=== PATIENT | male | born 1960 | race American Indian/Alaskan Native ===

== ENCOUNTER 2022-12-05 13:46 | Emergency (ER) | payer OTHER ==
[~2022-12-05] VITALS: Ht 180.3 cm; Wt 96.2 kg
[2022-12-05 14:56] LABS: BASOPHILS ABSOLUTE AUTO 0.09 K/mm3 (0.00-0.23); BASOPHILS PERCENT AUTO 1 % (0-2); EOSINOPHILS ABSOLUTE AUTO 0.18 K/mm3 (0.00-0.68); EOSINOPHILS PERCENT AUTO 2 % (0-6); Hematocrit 43.4 % (37.0-53.0); Hemoglobin 15.1 g/dL (13.5-17.5); IMMATURE GRAN ABSOLUTE AUTO 0.08 K/mm3 (0.00-0.10); IMMATURE GRAN PERCENT AUTO 1 % (0-1); LYMPHOCYTES ABSOLUTE AUTO 1.79 K/mm3 (0.84-5.20); LYMPHOCYTES PERCENT AUTO 15 % (21-46); MONOCYTES ABSOLUTE AUTO 1.11 K/mm3 (0.16-1.47); MONOCYTES PERCENT AUTO 9 % (4-13); Mean Corpuscular HGB 29.3 pg (26.0-34.0); Mean Corpuscular HGB Conc 34.8 g/dL (31.5-36.5); Mean Corpuscular Volume 84 fL (80-100); Mean Platelet Volume 10.9 fL (9.1-12.4); NEUTROPHILS ABSOLUTE AUTO 8.91 K/mm3 (1.96-9.15); NEUTROPHILS PERCENT AUTO 73 % (41-73); Platelet Count 241 K/mm3 (150-400); RDW Coefficient Variation 14.2 % (11.7-14.2); RDW Standard Deviation 43.7 fL (35.1-46.3); Red Blood Cell Count 5.16 M/mm3 (4.30-5.90); White Blood Cell Count 12.16 K/mm3 (4.00-11.30)
[2022-12-05 15:30] LABS: Albumin, Blood 3.3 g/dL (3.4-5.0); Albumin/Globulin Ratio 0.8 (0.8-1.8); Bilirubin, Total 0.8 mg/dL (0.1-1.0); Calcium, Blood 9.2 mg/dL (8.5-10.1); Creatinine, Blood 0.47 mg/dL (0.60-1.20); Globulin, Blood 3.9 g/dL (2.2-4.0); Potassium, Blood 3.3 mmol/L (3.5-5.5); Total Protein, Blood 7.2 g/dL (6.4-8.2)
== END 2022-12-05 16:45 | disposition home or self-care (01) ==
LOC: ER 13:46
PROVIDERS: Physician Assistant
DX: E11.52 Type 2 diabetes mellitus with diabetic peripheral angiopathy with gangrene (principal); I96 Gangrene, not elsewhere classified; F17.210 Nicotine dependence, cigarettes, uncomplicated; Z88.8 Allergy status to other drugs, medicaments and biological substances
CPT/HCPCS: 73620; 80053; 85025; 99283-25

== ENCOUNTER 2023-10-02 09:50 | Inpatient (IN) | payer SELFPAY ==
[~2023-10-02] VITALS: Ht 167.6 cm; Wt 87.4 kg
[2023-10-02] VITALS (15 sets, daily range): BP systolic 166–192; BP diastolic 75–99
[2023-10-02 10:43] LABS: BASOPHILS ABSOLUTE AUTO 0.24 K/mm3 (0.00-0.23); BASOPHILS PERCENT AUTO 1 % (0-2); EOSINOPHILS ABSOLUTE AUTO 0.16 K/mm3 (0.00-0.68); EOSINOPHILS PERCENT AUTO 1 % (0-6); Hematocrit 29.6 % (37.0-53.0); Hemoglobin 8.1 g/dL (13.5-17.5); IMMATURE GRAN ABSOLUTE AUTO 2.01 K/mm3 (0.00-0.10); IMMATURE GRAN PERCENT AUTO 6 % (0-1); LYMPHOCYTES ABSOLUTE AUTO 5.45 K/mm3 (0.84-5.20); LYMPHOCYTES PERCENT AUTO 16 % (21-46); MONOCYTES ABSOLUTE AUTO 2.02 K/mm3 (0.16-1.47); MONOCYTES PERCENT AUTO 6 % (4-13); Mean Corpuscular HGB 23.1 pg (26.0-34.0); Mean Corpuscular HGB Conc 27.4 g/dL (31.5-36.5); Mean Corpuscular Volume 85 fL (80-100); Mean Platelet Volume 11.6 fL (9.1-12.4); NEUTROPHILS PERCENT AUTO 71 % (41-73); Platelet Count 542 K/mm3 (150-400); RDW Coefficient Variation 17.6 % (11.7-14.2); RDW Standard Deviation 53.8 fL (35.1-46.3); White Blood Cell Count 34.48 K/mm3 (4.00-11.30)
[2023-10-02 11:10] LABS: Albumin, Blood 2.8 g/dL (3.4-5.0); Albumin/Globulin Ratio 0.9 (0.8-1.8); Bilirubin, Total 0.2 mg/dL (0.1-1.0); Bun/Creatinine Ratio 47.1 (12.0-20.0); Calcium, Blood 9.3 mg/dL (8.5-10.1); Creatinine, Blood 1.02 mg/dL (0.60-1.20); Globulin, Blood 3.1 g/dL (2.2-4.0); Potassium, Blood 4.5 mmol/L (3.5-5.5); Total Protein, Blood 5.9 g/dL (6.4-8.2)
[2023-10-02 12:34] LABS: PO2 Arterial 140 mmHg (80-100)
[2023-10-02 12:35] LABS: pH Blood Arterial 7.07 (7.35-7.45)
[2023-10-02 12:36] LABS: PCO2 Arterial 12.5 mmHg (35-45)
[2023-10-02] MEDS ORDERED: ELIQUIS5 M2 PO (16:08)
[2023-10-02] MEDS ORDERED: CYMBALTA60 M1 PO (16:09)
[2023-10-02] MEDS ORDERED: Hydroxyzine HCl25 MG PO (16:10)
[2023-10-02] MEDS ORDERED: Ativan1 MG PO (16:11)
[2023-10-02] MEDS ORDERED: Glucophage 500 mg PO (16:12)
[2023-10-02] MEDS ORDERED: METO100 PO (16:13)
[2023-10-02] MEDS ORDERED: MIRTAZAPINE7.5 M1 PO (16:14)
[2023-10-02] MEDS ORDERED: PERCOCET 10-321 EA10 PO (16:15)
[2023-10-02] MEDS ORDERED: PANT40 PO (16:16)
[2023-10-02] MEDS ORDERED: LYRICA150 M1 PO (16:17)
[2023-10-02] MEDS ORDERED: SEROQUEL50 MG PO (16:18)
[2023-10-02] MEDS ORDERED: SERT100 PO (16:19)
[2023-10-02] MEDS ORDERED: Januvia50 MG PO (16:20)
[2023-10-02 16:23] LABS: U Amphetamine Screen Not Detected; U Barbituate Screen Not Detected; U Benzodiazapine Screen DETECTED; U Buprenorphine Screen Not Detected; U Cannabinoids Screen DETECTED; U Cocaine Screen Not Detected; U Methadone Screen Not Detected; U Methamphetamine Screen Not Detected; U Opiates Screen Not Detected; U Oxycodone Screen DETECTED; U Phencyclidine Screen Not Detected
[2023-10-02 16:44] LABS: Hematocrit 19.5 % (37.0-53.0); Hemoglobin 6.1 g/dL (13.5-17.5)
[2023-10-02 17:02] LABS: International Normalized Ratio 1.21; Prothrombin Time Results 12.6 Sec (9.7-11.5)
[2023-10-02 17:19] LABS: Magnesium, Blood 2.3 mg/dL (1.6-2.4)
[2023-10-02 18:22] LABS: Adenovirus Not Detected (NOT DETECT); Bordetella pertussis Not Detected (NOT DETECT); Chlamydophila pneumoniae Not Detected (NOT DETECT); Coronavirus 229E Not Detected (NOT DETECT); Coronavirus HKU1 Not Detected (NOT DETECT); Coronavirus NL63 Not Detected (NOT DETECT); Coronavirus OC43 Not Detected (NOT DETECT); Human Metapneumovirus Not Detected (NOT DETECT); Human Rhinovirus/Enterovirus Not Detected (NOT DETECT); Influenza A/2009-H1 Not Detected (NOT DETECT); Influenza A/H1 Not Detected (NOT DETECT); Influenza A/H3 Not Detected (NOT DETECT); Influenza B Not Detected (NOT DETECT); Mycoplasma pneumoniae Not Detected (NOT DETECT); Parainfluenza Virus 1 Not Detected (NOT DETECT); Parainfluenza Virus 2 Not Detected (NOT DETECT); Parainfluenza Virus 3 Not Detected (NOT DETECT); Parainfluenza Virus 4 Not Detected (NOT DETECT); Respiratory Syncytial Virus Not Detected (NOT DETECT); SARS-Cov-2 (COVID-19), BioFire Not Detected (NOT DETECT)
[2023-10-02 18:23] LABS: Source, Urine Clean Catch
--- NOTE | 2023-10-02 18:38 | NUR ---
PATIENT ARRIVAL FROM ED PT ARRIVED FROM ED AT 1725. PT A/O X2. PT ABLE TO STATE AND THAT HE WAS IN THE HOSPITAL. PT CONTINUOUSLY PULLING AT GOWN, BLANKETS AND CORDS. PT NEEDING CONSISTENT REDIRECTION. PT ABLE TO FOLLOW SOME COMMANDS, OCCASIONALLY ASSISTING WITH TURNING IN BED. PT ON RA, O2 SATS > 95%. RESPIRATION RATE 30s. LUNG SHAW CLEAR T/O. CARDIAC MONITORING REFLECTS SINUS TACH, HR 130s. SBP 160s AT THIS TIME. VERSED, NS, AND INSULIN INFUSING UPON ARRIVAL TO UNIT, SEE FLOWSHEET. BLOOD TRANSFUSING @ 200 ML/HR, DOCUMENTATION FOR BLOOD PRODUCT CONTINUED ON ED PAPER RECORD. PT TO RECIEVE 1 MORE UNIT OF PRBCs. PT'S AT BEDSIDE. TEMP MORENO PATENT AND DRAINING TO GRAVITY. PT HAS VARIOUS WOUNDS ON BODY, SEE PICTURES DOCUMENTED IN CHART. TOES AMPUTATED ON PT'S LEFT FOOT. [address], PATENT WITH POSITIVE BLOOD DRAWBACK. PT IN BILATERAL SOFT WRIST RESTRAINTS.
[2023-10-02 18:40] LABS: Albumin, Blood 2.3 g/dL (3.4-5.0); Anion Gap 16 mmol/L (6-16); Blood Urea Nitrogen 51 mg/dL (8-24); Bun/Creatinine Ratio 49.5 (12.0-20.0); CO2, Blood 16 mmol/L (21-32); Chloride, Blood 113 mmol/L (98-108); Creatinine, Blood 1.03 mg/dL (0.60-1.20); Glomerular Filtration Rate 82 (60-); Glucose, Blood 361 mg/dL (70-99); Phosphorus, Blood 3.6 mg/dL (2.5-4.9); Potassium, Blood 4.4 mmol/L (3.5-5.5); Sodium, Blood 145 mmol/L (136-145)
[2023-10-02 18:40] LABS: Bilirubin, Urine Neg (Neg); Blood, Urine 5+ (Neg); Glucose Qualitative, Urine 4+ (Neg); Ketones, Urine 2+ (Neg); Leukocyte Esterase, Urine Neg (Neg); Nitrite, Urine Neg (Neg); Protein, Urine 2+ (Neg); Urobilinogen, Urine NORM (Normal)
[2023-10-02 18:41] LABS: Appearance, Urine Clear (Clear); Color, Urine Yellow (P-Yellow)
[2023-10-02 18:42] LABS: Bacteria Not Seen /hpf; Granular Casts 0-2 /lpf (0); Red Blood Cells, Urine 0-2 /hpf (0-2); Squamous Epithelial Cells Not Seen /hpf (Few); White Blood Cells, Urine Not Seen /hpf (0-5)
[2023-10-02 20:06] LABS: Hematocrit 25.6 % (37.0-53.0); Hemoglobin 8.5 g/dL (13.5-17.5)
[2023-10-02 20:25] LABS: Albumin, Blood 2.7 g/dL (3.4-5.0); Anion Gap 10 mmol/L (6-16); Blood Urea Nitrogen 48 mg/dL (8-24); CO2, Blood 19 mmol/L (21-32); Calcium, Blood 7.3 mg/dL (8.5-10.1); Chloride, Blood 114 mmol/L (98-108); Creatinine, Blood 0.87 mg/dL (0.60-1.20); Glomerular Filtration Rate 98 (60-); Glucose, Blood 250 mg/dL (70-99); Magnesium, Blood 2.2 mg/dL (1.6-2.4); Phosphorus, Blood 2.6 mg/dL (2.5-4.9); Potassium, Blood 4.5 mmol/L (3.5-5.5); Sodium, Blood 143 mmol/L (136-145)
--- NOTE | 2023-10-02 21:55 | NUR ---
ASSUMPTION OF CARE: RECEIVED REPORT FROM LOUIE RODRIGUEZ AND ANTHONY RN. PT ALERT AND ORIENTED TO PERSON AND PLACE. PT HAS FREQUENT EPISODES OF CONFUSION, BUT IS REDIRECTABLE. PT FREQUENTLY REPEATING HIMSELF. PT ON RA WITH SPO2 >95%. PT AGITATED AND TRYING TO CRAWL OUT OF BED. CALL PLACED TO HOSPITALIST, ORDERS GIVEN. PRECEDEX STARTED AT 0.4 MCG/KG/HR, TITRATED NEEDED. SEE FLOWSHEET. PT ENDORSES PAIN IN BACK, MEDICATED PER MAR WITH MINIMAL RELIEF. INSULIN DRIP AT 2 UNITS/HR. D5 1/2 NS AT 125 ML/HR. MORENO IN PLACE, DRAINING TO GRAVITY. LARGE BLACK STOOL THIS SHIFT. COOKIE BREAKER IN PLACE, SIT, HR 130'S. SBP 160'S-180'S. POWERGLIDE TO MICHAEL, SALINE LOCKED. PIV'S TO LEFT ARM, INTACT AND INFUSING. BILATERAL SOFT WRIST RESTRAINTS IN PLACE. BED LOW AND LOCKED.
[2023-10-02 22:01] LABS: Adenovirus F 40/41 Not Detected (NOT DETECT); Astrovirus Not Detected (NOT DETECT); Campylobacter Sp Not Detected (NOT DETECT); Cryptosporidium Not Detected (NOT DETECT); Cyclospora Cayetanensis Not Detected (NOT DETECT); E. Coli O157 Not Detected (NOT DETECT); Entamoeba Histolytica Not Detected (NOT DETECT); Enteroaggregative E. coli-EAEC Not Detected (NOT DETECT); Enteropathogenic E. coli-EPEC Not Detected (NOT DETECT); Enterotoxigenic E. coli-ETEC Not Detected (NOT DETECT); Giardia Lamblia Not Detected (NOT DETECT); Norovirus GI/GII Not Detected (NOT DETECT); Plesiomonas Shigelloides Not Detected (NOT DETECT); Rotavirus A Not Detected (NOT DETECT); Salmonella Sp Not Detected (NOT DETECT); Sapovirus Not Detected (NOT DETECT); Shiga Toxin-prod E. coli-STEC Not Detected (NOT DETECT); Shigella/Enteroin E. coli-EIEC Not Detected (NOT DETECT); Vibrio Cholerae Not Detected (NOT DETECT); Vibrio Sp Not Detected (NOT DETECT); Yersinia Enterocolitica Not Detected (NOT DETECT)
[2023-10-02 22:41] LABS: Hematocrit 24.1 % (37.0-53.0); Hemoglobin 7.9 g/dL (13.5-17.5)
[2023-10-03] VITALS (42 sets, daily range): BP systolic 126–181; BP diastolic 47–117
[2023-10-03 00:49] LABS: Albumin, Blood 2.6 g/dL (3.4-5.0); Anion Gap 7 mmol/L (6-16); Blood Urea Nitrogen 48 mg/dL (8-24); Bun/Creatinine Ratio 57.6 (12.0-20.0); CO2, Blood 21 mmol/L (21-32); Calcium, Blood 7.2 mg/dL (8.5-10.1); Chloride, Blood 116 mmol/L (98-108); Creatinine, Blood 0.83 mg/dL (0.60-1.20); Glomerular Filtration Rate 99 (60-); Glucose, Blood 242 mg/dL (70-99); Phosphorus, Blood 2.2 mg/dL (2.5-4.9); Potassium, Blood 4.1 mmol/L (3.5-5.5); Sodium, Blood 144 mmol/L (136-145)
[2023-10-03 04:37] LABS: BASOPHILS ABSOLUTE AUTO 0.04 K/mm3 (0.00-0.23); BASOPHILS PERCENT AUTO 0 % (0-2); EOSINOPHILS ABSOLUTE AUTO 0.05 K/mm3 (0.00-0.68); EOSINOPHILS PERCENT AUTO 0 % (0-6); Hematocrit 22.2 % (37.0-53.0); Hemoglobin 7.4 g/dL (13.5-17.5); IMMATURE GRAN PERCENT AUTO 2 % (0-1); LYMPHOCYTES PERCENT AUTO 4 % (21-46); MONOCYTES ABSOLUTE AUTO 0.87 K/mm3 (0.16-1.47); MONOCYTES PERCENT AUTO 5 % (4-13); Mean Corpuscular HGB 24.8 pg (26.0-34.0); Mean Corpuscular HGB Conc 33.3 g/dL (31.5-36.5); Mean Platelet Volume 10.9 fL (9.1-12.4); NEUTROPHILS ABSOLUTE AUTO 17.04 K/mm3 (1.96-9.15); NEUTROPHILS PERCENT AUTO 90 % (41-73); Platelet Count 174 K/mm3 (150-400); RDW Coefficient Variation 17.5 % (11.7-14.2); RDW Standard Deviation 47.2 fL (35.1-46.3); Red Blood Cell Count 2.98 M/mm3 (4.30-5.90)
[2023-10-03 04:39] LABS: Mean Corpuscular Volume 75 fL (80-100)
[2023-10-03 04:54] LABS: Albumin, Blood 2.6 g/dL (3.4-5.0); Anion Gap 8 mmol/L (6-16); Blood Urea Nitrogen 43 mg/dL (8-24); CO2, Blood 20 mmol/L (21-32); Calcium, Blood 7.5 mg/dL (8.5-10.1); Chloride, Blood 118 mmol/L (98-108); Glomerular Filtration Rate 100 (60-); Glucose, Blood 184 mg/dL (70-99); Magnesium, Blood 2.1 mg/dL (1.6-2.4); Phosphorus, Blood 2.1 mg/dL (2.5-4.9); Potassium, Blood 3.7 mmol/L (3.5-5.5); Sodium, Blood 146 mmol/L (136-145)
--- NOTE | 2023-10-03 06:26 | NUR ---
SHIFT SUMMARY: PT ALERT AND ORIENTED TO PERSON, PLACE AND SITUATION. ABLE TO ANSWER SIMPLE QUESTIONS AND FOLLOW COMMANDS. PT CONFUSED AT TIMES, VERY RESTLESS AND AGITATED T/O THE SHIFT. FREQUENTLY PULLING AT LINES AND HOLLERING OUT. PT ON PRECEDEX AT 1.4 MCG/KG/HR. INSULIN AT 4 UNITS/HR. D5 1/2 AT 125 ML/HR. PT FREQUENTLY C/O PAIN IN BACK AND LEGS, MEDICATED PER MAR WITH MINIMAL RELIEF. LIDOCAINE PATCH PLACED ON LOWER BACK. PT REMAINS ON RA T/O THE SHIFT, NO C/O SOB. SPO2 >95%. SPIKE DRIVER IN PLACE, SIT HR 100'S. SBP 160'S-170'S. PT ABLE TO SHIFT AROUND IN BED WITH MINIMAL ASSISTANCE. MORENO DRAINING TO GRAVITY. ONE LIQUID BLACK BM THIS SHIFT. POWERGLIDE TO MICHAEL, INFUSING. PIV'S INTACT AND INFUSING. SOFT WRIST RESTRAINTS IN PLACE FOR PROTECTION OF LINES. CALLED IN THE NIGHT FOR AN UPDATE. BED LOW AND LOCKED.
--- NOTE | 2023-10-03 07:55 | NUR ---
AM NOTE... ASSUMED CARE OF PT AT 0700. PT IS A&Ox4 WITH SOME CONFUSION AT TIMES BUT IS RE-ORIENTED EASILY. PT IS ON THE INSULIN DRIP RUNNING AT 4U/HR, PRECEDEX DRIP RUNNING AT 1.4MCG/KG/HR, THIS WAS STOPPED AT THE TIME OF THIS ASSESSMENT. HE IS IN SINUS TACH IN THE LOW 100'S BP IS HYPERTENSIVE WITH SBPs 140'S-180'S. THE PT'S PULSES TO HIS BLE ARE ABSENT, THIS RN ASSESSED HIS BLE WITH DOPPLER AND WAS NOT ABLE TO IDENTIFY THE PRESENCE OF DORSAL PEDAL OR P. TIBIAL PULSES ON EITHER BLE. HIS BLE FROM THE KNEES DOWN ARE PALE, DRY AND COOL TO THE TOUCH. THERE IS A DARK BLACK/RED BLISTER LOOKING SPOT TO THE PT'S R GREAT TOE. HE IS ON RA WITH O2 SATS>95% L/S CLEAR T/O DIM IN THE BASES RR IN THE 20'S. BT PRESENT AND HYPERACTIVE, ABD IS SOFT AND NONTENDER TO PALPATION. PER NOC SHIFT RN REPORT THE PT HAD A LARGE LOOSE BLACK TARRY STOOL AT THE START OF THE NOC SHIFT BUT NOTHING SINCE. TEMP MORENO IN PLACE AND DRAINING CLEAR YELLOW URINE TO GRAVITY. CURRENT TEMP IS 99.7. CALL LIGHT IN REACH WILL CONTINUE TO MONITOR.
[2023-10-03 11:03] LABS: Hematocrit 22.4 % (37.0-53.0); Hemoglobin 7.5 g/dL (13.5-17.5)
[2023-10-03 11:55] LABS: Stool Occult Bld Immuno 1 Positive (NEGATIVE)
--- NOTE | 2023-10-03 15:28 | NUR ---
PT TRANSFER OUT.... PT LEFT WITH MEDICAL TRANSPORT AT 1520, REPORT GIVEN TO EMS STAFF AT THE TIME OF TRANSFER. ALL OF THE PT'S BELONGINGS PACKED AND SENT WITH THE PT'S FERNIE. REPORT GIVEN TO ABLE RN AT [facility] [place]. PT'S VS STABLE AT THE TIME OF TRANSFER.
[2023-10-04 22:07] LABS: HEMOGLOBIN A1C 7.2 % (4.8-5.6)
== END 2023-10-03 15:42 | disposition short-term general hospital (02) | DRG 637 ==
LOC: ER 09:50 → ICUE 15:50
PROVIDERS: Emergency Medicine; Nurse Practitioner Acute Care; ADMIT Internal Medicine
PROC: 30233N1 Transfusion of Nonautologous Red Blood Cells into Peripheral Vein, Percutaneous Approach (ICD-10-PCS; principal; 2023-10-02)
DX: E11.10 Type 2 diabetes mellitus with ketoacidosis without coma (principal); G93.41 Metabolic encephalopathy; J18.9 Pneumonia, unspecified organism; D62 Acute posthemorrhagic anemia; L97.929 Non-pressure chronic ulcer of unspecified part of left lower leg with unspecified severity; K92.2 Gastrointestinal hemorrhage, unspecified; E11.622 Type 2 diabetes mellitus with other skin ulcer; E86.0 Dehydration; E83.39 Other disorders of phosphorus metabolism; D75.839 Thrombocytosis, unspecified; I50.9 Heart failure, unspecified; I25.10 Atherosclerotic heart disease of native coronary artery without angina pectoris; E11.51 Type 2 diabetes mellitus with diabetic peripheral angiopathy without gangrene; M54.9 Dorsalgia, unspecified; G89.29 Other chronic pain; F29 Unspecified psychosis not due to a substance or known physiological condition; E11.42 Type 2 diabetes mellitus with diabetic polyneuropathy; F41.9 Anxiety disorder, unspecified; F32.A Depression, unspecified; F32.9 Major depressive disorder, single episode, unspecified; F17.210 Nicotine dependence, cigarettes, uncomplicated; Z86.711 Personal history of pulmonary embolism; Z86.718 Personal history of other venous thrombosis and embolism; Z79.01 Long term (current) use of anticoagulants; I25.2 Old myocardial infarction; Z95.5 Presence of coronary angioplasty implant and graft; Z95.1 Presence of aortocoronary bypass graft; Z99.81 Dependence on supplemental oxygen; Z89.422 Acquired absence of other left toe(s); Z89.412 Acquired absence of left great toe; Z88.8 Allergy status to other drugs, medicaments and biological substances
CPT/HCPCS: 0202U; 36415; 36430; 36600; 51702; 71045; 80053; 80069; 81001; 82274; 82330; 82803; 82947; 83735; 83880; 84145; 84484; 85014; 85018; 85025; 85379; 85610; 85730; 86850; 86900; 86901; 86920; 87086; 87507; 93005; 93010; 99285-25; A9270; C1751; C9113; J0360; J0456; J0696; J1170; J1200; J1630; J1815; J1885; J2060; J2250; J3010; J7030; J7042; J7050; J7060; P9016

== ENCOUNTER 2023-12-03 07:30 | Emergency (ER) | payer OTHER ==
[~2023-12-03] VITALS: Ht 180.3 cm; Wt 83.9 kg
[~2023-12-03 07:30] MED LIST: Ativan1 MG PO; CYMBALTA60 M1 PO; ELIQUIS5 M2 PO; Glucophage 500 mg PO; Hydroxyzine HCl25 MG PO; Januvia50 MG PO; LYRICA150 M1 PO; METO100 PO; MIRTAZAPINE7.5 M1 PO; PANT40 PO; PERCOCET 10-321 EA10 PO; SEROQUEL50 MG PO; SERT100 PO
[2023-12-03 08:04] LABS: BASOPHILS ABSOLUTE AUTO 0.06 K/mm3 (0.00-0.23); BASOPHILS PERCENT AUTO 1 % (0-2); EOSINOPHILS ABSOLUTE AUTO 0.12 K/mm3 (0.00-0.68); EOSINOPHILS PERCENT AUTO 1 % (0-6); Hematocrit 39.5 % (37.0-53.0); Hemoglobin 12.2 g/dL (13.5-17.5); IMMATURE GRAN ABSOLUTE AUTO 0.07 K/mm3 (0.00-0.10); IMMATURE GRAN PERCENT AUTO 1 % (0-1); LYMPHOCYTES ABSOLUTE AUTO 1.16 K/mm3 (0.84-5.20); LYMPHOCYTES PERCENT AUTO 11 % (21-46); MONOCYTES ABSOLUTE AUTO 0.47 K/mm3 (0.16-1.47); MONOCYTES PERCENT AUTO 4 % (4-13); Mean Corpuscular HGB 23.5 pg (26.0-34.0); Mean Corpuscular HGB Conc 30.9 g/dL (31.5-36.5); Mean Corpuscular Volume 76 fL (80-100); Mean Platelet Volume 9.7 fL (9.1-12.4); NEUTROPHILS ABSOLUTE AUTO 8.79 K/mm3 (1.96-9.15); NEUTROPHILS PERCENT AUTO 82 % (41-73); Platelet Count 347 K/mm3 (150-400); RDW Coefficient Variation 16.5 % (11.7-14.2); RDW Standard Deviation 45.6 fL (35.1-46.3); White Blood Cell Count 10.67 K/mm3 (4.00-11.30)
[2023-12-03 08:07] LABS: Base Excess Venous 1.6 mmol/L; Bicarbonate Venous 25.5 mmol/L (24.0-30.0); PCO2 Venous 39.1 mmHg (38-42); pH Blood Venous 7.43 (7.34-7.37)
[2023-12-03] MEDS ORDERED: Morphine Sulfate 4 MG/1 ML Injection IV ONE (08:15)
[2023-12-03 08:27] LABS: Albumin, Blood 3.3 g/dL (3.4-5.0); Albumin/Globulin Ratio 0.7 (0.8-1.8); Bilirubin, Total 0.3 mg/dL (0.1-1.0); Bun/Creatinine Ratio 22.9 (12.0-20.0); Calcium, Blood 9.7 mg/dL (8.5-10.1); Creatinine, Blood 0.48 mg/dL (0.60-1.20); Globulin, Blood 4.6 g/dL (2.2-4.0); Potassium, Blood 4.2 mmol/L (3.5-5.5); Total Protein, Blood 7.9 g/dL (6.4-8.2)
[2023-12-03 10:26] LABS: Source, Urine Clean Catch
[2023-12-03 10:37] LABS: Appearance, Urine Clear (Clear); Bilirubin, Urine Neg (Neg); Blood, Urine Neg (Neg); Color, Urine Yellow (P-Yellow); Glucose Qualitative, Urine Neg (Neg); Ketones, Urine Neg (Neg); Leukocyte Esterase, Urine Neg (Neg); Nitrite, Urine Neg (Neg); Protein, Urine 1+ (Neg); Urobilinogen, Urine NORM (Normal)
[2023-12-03 11:02] VITALS: BP 132/70
== END 2023-12-03 13:24 | disposition home or self-care (01) ==
LOC: ER 07:30
PROVIDERS: Emergency Medicine
DX: R53.81 Other malaise (principal); R68.83 Chills (without fever); Z89.512 Acquired absence of left leg below knee; Z71.89 Other specified counseling; E11.40 Type 2 diabetes mellitus with diabetic neuropathy, unspecified; E11.65 Type 2 diabetes mellitus with hyperglycemia; I11.0 Hypertensive heart disease with heart failure; I50.9 Heart failure, unspecified; Z86.711 Personal history of pulmonary embolism; Z86.718 Personal history of other venous thrombosis and embolism; Z87.19 Personal history of other diseases of the digestive system; F17.210 Nicotine dependence, cigarettes, uncomplicated; Z79.01 Long term (current) use of anticoagulants; Z79.84 Long term (current) use of oral hypoglycemic drugs; Z88.8 Allergy status to other drugs, medicaments and biological substances
CPT/HCPCS: 71045; 80053; 82803; 85025; 86850; 86900; 86901; 96374; 99285-25; J2270

== ENCOUNTER 2024-01-19 20:12 | Inpatient (IN) | payer MEDICARE, OTHER ==
[~2024-01-19] VITALS: Ht 180.3 cm; Wt 86.5 kg
[~2024-01-19 20:12] MED LIST changes: +CEPH500 PO; +DOXY100 PO
[2024-01-19 20:39] LABS: BASOPHILS ABSOLUTE AUTO 0.08 K/mm3 (0.00-0.23); BASOPHILS PERCENT AUTO 1 % (0-2); EOSINOPHILS ABSOLUTE AUTO 0.06 K/mm3 (0.00-0.68); EOSINOPHILS PERCENT AUTO 1 % (0-6); Hematocrit 42.6 % (37.0-53.0); Hemoglobin 13.4 g/dL (13.5-17.5); IMMATURE GRAN ABSOLUTE AUTO 0.07 K/mm3 (0.00-0.10); IMMATURE GRAN PERCENT AUTO 1 % (0-1); LYMPHOCYTES ABSOLUTE AUTO 1.12 K/mm3 (0.84-5.20); LYMPHOCYTES PERCENT AUTO 9 % (21-46); MONOCYTES ABSOLUTE AUTO 0.52 K/mm3 (0.16-1.47); MONOCYTES PERCENT AUTO 4 % (4-13); Mean Corpuscular HGB 22.6 pg (26.0-34.0); Mean Corpuscular HGB Conc 31.5 g/dL (31.5-36.5); Mean Corpuscular Volume 72 fL (80-100); Mean Platelet Volume 10.4 fL (9.1-12.4); NEUTROPHILS ABSOLUTE AUTO 10.29 K/mm3 (1.96-9.15); NEUTROPHILS PERCENT AUTO 85 % (41-73); Platelet Count 297 K/mm3 (150-400); RDW Coefficient Variation 16.6 % (11.7-14.2); RDW Standard Deviation 41.7 fL (35.1-46.3); Red Blood Cell Count 5.94 M/mm3 (4.30-5.90); White Blood Cell Count 12.14 K/mm3 (4.00-11.30)
[2024-01-19 21:08] LABS: Albumin, Blood 3.8 g/dL (3.4-5.0); Albumin/Globulin Ratio 0.9 (0.8-1.8); Bilirubin, Total 0.3 mg/dL (0.1-1.0); Bun/Creatinine Ratio 18.5 (12.0-20.0); Creatinine, Blood 0.54 mg/dL (0.60-1.20); Globulin, Blood 4.2 g/dL (2.2-4.0); Potassium, Blood 4.1 mmol/L (3.5-5.5)
[2024-01-19] MEDS ORDERED: LORazepam 2 MG/ML 1ML Injection IV PRN (21:20)
[2024-01-19] MEDS ORDERED: HYDROmorphone HCl/Pf 1MG SYR IV ONE (21:20)
[2024-01-20] MEDS ORDERED: Apixaban 5 MG Tab PO ONE (00:25)
[2024-01-20] MEDS ORDERED: Famotidine 20 MG Tab PO ONE (00:25)
[2024-01-20] MEDS ORDERED: Mag Hydrox/AL Hydrox/Simeth 30 ML UDC PO ONE (00:25)
[2024-01-20] MEDS ORDERED: Lidocaine 2% Viscous Soln 15 ML UDC PO ONE (00:25)
[2024-01-20 01:57] LABS: Adenovirus Not Detected (NOT DETECT); Bordetella pertussis Not Detected (NOT DETECT); Chlamydophila pneumoniae Not Detected (NOT DETECT); Coronavirus 229E Not Detected (NOT DETECT); Coronavirus HKU1 Not Detected (NOT DETECT); Coronavirus NL63 Not Detected (NOT DETECT); Coronavirus OC43 Not Detected (NOT DETECT); Human Metapneumovirus Not Detected (NOT DETECT); Human Rhinovirus/Enterovirus Not Detected (NOT DETECT); Influenza A/2009-H1 Not Detected (NOT DETECT); Influenza A/H1 Not Detected (NOT DETECT); Influenza A/H3 Not Detected (NOT DETECT); Influenza B Not Detected (NOT DETECT); Mycoplasma pneumoniae Not Detected (NOT DETECT); Parainfluenza Virus 1 Not Detected (NOT DETECT); Parainfluenza Virus 2 Not Detected (NOT DETECT); Parainfluenza Virus 3 Not Detected (NOT DETECT); Parainfluenza Virus 4 Not Detected (NOT DETECT); Respiratory Syncytial Virus Not Detected (NOT DETECT); SARS-Cov-2 (COVID-19), BioFire Not Detected (NOT DETECT)
[2024-01-20] MEDS ORDERED: Cefepime HCl 1,000 MG in NS 100 ML IV ONE (02:20)
[2024-01-20] MEDS ORDERED: Vancomycin HCL 1,500 MG in NS 265 ML IV ONE (02:20)
[2024-01-20] MEDS ORDERED: NS 1,000 ML IV SCH ×3 (02:20→09:00)
[2024-01-20] MEDS ORDERED: FentaNYL Citrate 50 MCG/ML 2 ML Injection IV PRN (02:40)
[2024-01-20] MEDS ORDERED: Ondansetron HCl 2 MG / ML 2ML Vial IV PRN (02:40)
[2024-01-20] MEDS ORDERED: Ampicillin Sod/Sulbactam Sod 3 GM in NS 100 ML IV SCH (03:00)
[2024-01-20] MEDS ORDERED: MIRT30 PO (03:11)
[2024-01-20] MEDS ORDERED: QUET25 PO (03:12)
[2024-01-20] MEDS ORDERED: Ventolin/Prove6.7 GM INH (03:25)
[2024-01-20] MEDS ORDERED: Lyrica300 MG PO (03:25)
[2024-01-20] MEDS ORDERED: VARENICLINE TART1 M2 PO (03:26)
[2024-01-20 04:17] VITALS: BP 182/74
--- NOTE | 2024-01-20 05:24 | NUR ---
PT ARRIVED TO 0408 TO THE UNIT. PT TRANSFERED VIA BLACK SLIDING SHEET. PT A&O x2, BP ELEVATED, AFEBRILE. PT ON RA, RESP RATE EVEN AND UNLABORED. AT THE BEDSIDE ASSISTING WITH ANSWERING ASSESSMENT QUESTIONS. PT SHAKING, DIAPHORETIC, ASKING FOR WARM BLANKETS. PT ADMITTED FOR NAUSEA, CHILLS, ABD PAIN TO THE CENTER OF ABDOMIN, ADMIT DIAGNOSIS SIRS. PT HAS A HX OF DM2, CHF, GIB, PE, DVT, L BKA, CABG, CAD, DE AND CHRONIC BACK PAIN. SKIN ASSESSMENT COMPLETED, PICTURES TO R GREAT TOE AND INCISION SITE TO L INNER LEG TAKEN AND IN HIS CHART. PT RECEIVING IV ABX. CALL LIGHT WITHIN REACH, WCTM.
[2024-01-20 05:40] LABS: BASOPHILS ABSOLUTE AUTO 0.06 K/mm3 (0.00-0.23); BASOPHILS PERCENT AUTO 1 % (0-2); EOSINOPHILS PERCENT AUTO 0 % (0-6); Hematocrit 44.4 % (37.0-53.0); Hemoglobin 13.8 g/dL (13.5-17.5); IMMATURE GRAN ABSOLUTE AUTO 0.07 K/mm3 (0.00-0.10); IMMATURE GRAN PERCENT AUTO 1 % (0-1); LYMPHOCYTES ABSOLUTE AUTO 1.22 K/mm3 (0.84-5.20); LYMPHOCYTES PERCENT AUTO 10 % (21-46); MONOCYTES ABSOLUTE AUTO 0.42 K/mm3 (0.16-1.47); MONOCYTES PERCENT AUTO 4 % (4-13); Mean Corpuscular HGB 22.3 pg (26.0-34.0); Mean Corpuscular HGB Conc 31.1 g/dL (31.5-36.5); Mean Corpuscular Volume 72 fL (80-100); Mean Platelet Volume 10.4 fL (9.1-12.4); NEUTROPHILS ABSOLUTE AUTO 10.33 K/mm3 (1.96-9.15); NEUTROPHILS PERCENT AUTO 85 % (41-73); Platelet Count 310 K/mm3 (150-400); RDW Standard Deviation 41.5 fL (35.1-46.3); Red Blood Cell Count 6.18 M/mm3 (4.30-5.90)
[2024-01-20 05:47] LABS: International Normalized Ratio 0.98; Prothrombin Time Results 10.3 Sec (9.7-11.5)
[2024-01-20 06:00] LABS: Albumin, Blood 3.8 g/dL (3.4-5.0); Albumin/Globulin Ratio 0.9 (0.8-1.8); Bilirubin, Total 0.2 mg/dL (0.1-1.0); Bun/Creatinine Ratio 25.8 (12.0-20.0); Creatinine, Blood 0.47 mg/dL (0.60-1.20); Globulin, Blood 4.3 g/dL (2.2-4.0); Potassium, Blood 4.1 mmol/L (3.5-5.5); Total Protein, Blood 8.1 g/dL (6.4-8.2)
[2024-01-20] MEDS ORDERED: Albuterol HFA200 ACT/6.7 GM INH INH PRN (06:45)
[2024-01-20 07:21] VITALS: BP 149/81
[2024-01-20 08:42] LABS: Source, Urine Clean Catch
[2024-01-20 08:55] LABS: Appearance, Urine Hazy (Clear); Bilirubin, Urine Neg (Neg); Blood, Urine Neg (Neg); Color, Urine Yellow (P-Yellow); Glucose Qualitative, Urine Neg (Neg); Ketones, Urine Neg (Neg); Leukocyte Esterase, Urine Neg (Neg); Nitrite, Urine Neg (Neg); Protein, Urine 1+ (Neg); Urobilinogen, Urine NORM (Normal)
[2024-01-20] MEDS ORDERED: QUEtiapine Fumarate 25 MG Tab PO SCH (09:00)
[2024-01-20] MEDS ORDERED: OxyCODONE 10/Acetamin 325 TABLET PO PRN (09:00)
[2024-01-20] MEDS ORDERED: DULoxetine HCL 60 MG Capsule DR PO SCH (09:00)
[2024-01-20] MEDS ORDERED: Varenicline Tartrate 1 MG Tablet PO SCH (09:00)
[2024-01-20] MEDS ORDERED: Enoxaparin 40 MG/0.4 ML SYR SC SCH (09:00)
[2024-01-20] MEDS ORDERED: Pregabalin 75 MG Cap PO SCH (09:00)
[2024-01-20 09:08] LABS: Amorphous Heavy (0-Heavy); Bacteria Not Seen /hpf; Red Blood Cells, Urine Not Seen /hpf (0-2); Squamous Epithelial Cells Not Seen /hpf (Few); White Blood Cells, Urine Not Seen /hpf (0-5)
[2024-01-20 09:09] LABS: U Amphetamine Screen Not Detected; U Barbituate Screen Not Detected; U Benzodiazapine Screen DETECTED; U Buprenorphine Screen Not Detected; U Cannabinoids Screen DETECTED; U Cocaine Screen Not Detected; U Methadone Screen Not Detected; U Methamphetamine Screen Not Detected; U Opiates Screen DETECTED; U Oxycodone Screen DETECTED; U Phencyclidine Screen Not Detected
[2024-01-20] MEDS ORDERED: Nicotine 14 MG PATCH TOP SCH (09:35)
[2024-01-20 11:40] LABS: Hematocrit 39.2 % (37.0-53.0); Hemoglobin 12.5 g/dL (13.5-17.5)
[2024-01-20] MEDS ORDERED: Heparin Sodium,Porcine/0.5 NS 500 ML IV SCH (12:00)
[2024-01-20 16:27] VITALS: BP 152/71
[2024-01-20] MEDS ORDERED: Insulin Human Lispro 100 Units/ML 3ML Syringe SC SCH (16:30)
--- NOTE | 2024-01-20 16:43 | NUR ---
SHIFT SUMMARY PT AOX3, MORE ORIENTED THIS AFTERNOON. MEDICATED FOR PAIN PER THE EMAR. HEPARIN DRIP RUNNING AND IV PATENT. PT WC AT BASELINE, USES THE URINAL INDEPENDENTLY. CALLS AND MAKES HIS NEEDS KNOWN. AT THE BS MOST OF THE SHIFT. CALL LIGHT WITHIN REACH, BED IN THE LOWEST POSITION. WILL REPORT TO ONCOMING NURSE.
[2024-01-20 19:12] LABS: Hematocrit 39.1 % (37.0-53.0); Hemoglobin 12.2 g/dL (13.5-17.5)
[2024-01-20] MEDS ORDERED: Heparin Sodium 5000 Units/ML 1ML MDV IV ONE (20:10)
[2024-01-20 20:11] VITALS: BP 161/74
[2024-01-20] MEDS ORDERED: Mirtazapine 30 MG Tab PO SCH (21:00)
[2024-01-21] MEDS ORDERED: LORazepam 1 MG Tab PO ONE (01:35)
--- NOTE | 2024-01-21 02:00 | NUR ---
ADMIT NOTE PATIENT ARRIVED TO FLOOR VIA GURNEY. ORIENTED TO UNIT. IV ANTIB RX INFUSING. PERSONAL CLOTHES ON PATIENT AT THIS TIME, HE DECLINES TO CHANGE. TELEMETRY ORDERED. CALL BUTTON WITHIN REACH.
[2024-01-21 02:55] VITALS: BP 128/72
[2024-01-21 03:20] LABS: BASOPHILS ABSOLUTE AUTO 0.07 K/mm3 (0.00-0.23); BASOPHILS PERCENT AUTO 1 % (0-2); EOSINOPHILS ABSOLUTE AUTO 0.18 K/mm3 (0.00-0.68); EOSINOPHILS PERCENT AUTO 2 % (0-6); Hematocrit 35.8 % (37.0-53.0); Hemoglobin 11.2 g/dL (13.5-17.5); IMMATURE GRAN ABSOLUTE AUTO 0.04 K/mm3 (0.00-0.10); IMMATURE GRAN PERCENT AUTO 1 % (0-1); LYMPHOCYTES ABSOLUTE AUTO 2.45 K/mm3 (0.84-5.20); LYMPHOCYTES PERCENT AUTO 31 % (21-46); MONOCYTES ABSOLUTE AUTO 0.63 K/mm3 (0.16-1.47); MONOCYTES PERCENT AUTO 8 % (4-13); Mean Corpuscular HGB 22.5 pg (26.0-34.0); Mean Corpuscular HGB Conc 31.3 g/dL (31.5-36.5); Mean Corpuscular Volume 72 fL (80-100); Mean Platelet Volume 10.4 fL (9.1-12.4); NEUTROPHILS ABSOLUTE AUTO 4.61 K/mm3 (1.96-9.15); NEUTROPHILS PERCENT AUTO 58 % (41-73); Platelet Count 211 K/mm3 (150-400); RDW Coefficient Variation 16.1 % (11.7-14.2); RDW Standard Deviation 41.8 fL (35.1-46.3); Red Blood Cell Count 4.97 M/mm3 (4.30-5.90); White Blood Cell Count 7.98 K/mm3 (4.00-11.30)
[2024-01-21 03:36] LABS: Bun/Creatinine Ratio 22.6 (12.0-20.0); Calcium, Blood 8.7 mg/dL (8.5-10.1); Creatinine, Blood 0.53 mg/dL (0.60-1.20); Potassium, Blood 3.9 mmol/L (3.5-5.5)
[2024-01-21] MEDS ORDERED: Dose Adjust by Pharmacy XX STA (03:56)
[2024-01-21] MEDS ORDERED: Heparin Sodium 5000 Units/ML 1ML MDV IV ONE (04:00)
--- NOTE | 2024-01-21 04:22 | NUR ---
SHIFT SUMMARY ADMITTED FOR SIRS. NECROTIC RIGHT BIG TOE. FULL CODE. IV ANTIB RX ARE SCHEDULED. IV FLUID INFUSING. HEPARIN DRIP INFUSING. HEPARIN DOSEAGE CHANGED TWICE THIS SHIFT. PAIN AND ANXIETY MEDICATION GIVEN. SEE EMAR. HE IS A&O X3-4. TELEMETRY: NSR @ 93 BPM. ACHS CBG'S- LOW SS. PODIATRY CONSULT IS DR. BERGER. HE IS ON RA. INDEPENDENT TO WC @ BASELINE. HX OF ELIQUIS, DVT/PE, DM2, CHF, LEFT AKA, PAD, CAD - STENTS, GI BLEED.
[2024-01-21 07:29] VITALS: BP 136/80
[2024-01-21 08:31] LABS: Hematocrit 37.7 % (37.0-53.0); Hemoglobin 11.7 g/dL (13.5-17.5)
--- NOTE | 2024-01-21 09:11 | NUR ---
AMA NOTE: PT LEFT THIS MORNING AMA, POTENTIAL ISSUES EXPLAINED TO PT REGARDING DECISION. CLINICAL COORDINATOR, ANALY, SPOKE WITH THE PT AND HE AGREED TO SIGN THE AMA DOCUMENT. IV'S REMOVED, TELE RETURNED. PT CONTACTED FOR A RIDE AND HE ESCORTED HIMSELF OFF THE FLOOR. PROVIDER AWARE.
== END 2024-01-21 08:51 | disposition left against medical advice (07) | DRG 872 ==
LOC: ER 20:12 → MEDS 20:13
PROVIDERS: Emergency Medicine; Student in an Organized Health Care Education/Training Program; ADMIT Internal Medicine
DX: A41.9 Sepsis, unspecified organism (principal); E11.52 Type 2 diabetes mellitus with diabetic peripheral angiopathy with gangrene; F41.9 Anxiety disorder, unspecified; F32.A Depression, unspecified; G89.29 Other chronic pain; S42.002A Fracture of unspecified part of left clavicle, initial encounter for closed fracture; I11.0 Hypertensive heart disease with heart failure; I50.9 Heart failure, unspecified; I25.10 Atherosclerotic heart disease of native coronary artery without angina pectoris; F17.210 Nicotine dependence, cigarettes, uncomplicated; M81.0 Age-related osteoporosis without current pathological fracture; K76.89 Other specified diseases of liver; E11.621 Type 2 diabetes mellitus with foot ulcer; L97.513 Non-pressure chronic ulcer of other part of right foot with necrosis of muscle; E11.42 Type 2 diabetes mellitus with diabetic polyneuropathy; I25.2 Old myocardial infarction; Z89.612 Acquired absence of left leg above knee; Z95.1 Presence of aortocoronary bypass graft; Z95.5 Presence of coronary angioplasty implant and graft; Z86.711 Personal history of pulmonary embolism; Z86.718 Personal history of other venous thrombosis and embolism; Z87.19 Personal history of other diseases of the digestive system; Z95.820 Peripheral vascular angioplasty status with implants and grafts; Z79.01 Long term (current) use of anticoagulants; Z79.84 Long term (current) use of oral hypoglycemic drugs; Z79.899 Other long term (current) drug therapy
CPT/HCPCS: 0202U; 36415; 71045; 73660; 75635; 80048; 80053; 81001; 82947; 83605; 83690; 83880; 84484; 85014; 85018; 85025; 85610; 85730; 93306; 94760; 96361; 96365; 96366; 96367; 96368; 96374-59; 96375; 96375-59; 99285-25; A9270; G0378; J0295; J0692; J1170; J1644; J2060; J3010; J3370; J7030; J7050; Q9967

== ENCOUNTER 2024-03-30 02:51 | Emergency (ER) | payer MEDICARE, OTHER ==
[~2024-03-30] VITALS: Ht 180.3 cm; Wt 83.9 kg
[~2024-03-30 02:51] MED LIST changes: +Lyrica300 MG PO; +MIRT30 PO; +QUET25 PO; +VARENICLINE TART1 M2 PO; +Ventolin/Prove6.7 GM INH
[2024-03-30] MEDS ORDERED: Ketorolac Tromethamine 15mg Vial IV ONE (03:15)
[2024-03-30 03:45] LABS: BASOPHILS PERCENT AUTO 1 % (0-2); EOSINOPHILS ABSOLUTE AUTO 0.25 K/mm3 (0.00-0.68); EOSINOPHILS PERCENT AUTO 2 % (0-6); Hematocrit 41.6 % (37.0-53.0); Hemoglobin 13.4 g/dL (13.5-17.5); IMMATURE GRAN ABSOLUTE AUTO 0.06 K/mm3 (0.00-0.10); IMMATURE GRAN PERCENT AUTO 1 % (0-1); LYMPHOCYTES ABSOLUTE AUTO 1.97 K/mm3 (0.84-5.20); LYMPHOCYTES PERCENT AUTO 17 % (21-46); MONOCYTES ABSOLUTE AUTO 0.67 K/mm3 (0.16-1.47); MONOCYTES PERCENT AUTO 6 % (4-13); Mean Corpuscular HGB 24.1 pg (26.0-34.0); Mean Corpuscular HGB Conc 32.2 g/dL (31.5-36.5); Mean Corpuscular Volume 75 fL (80-100); Mean Platelet Volume 9.9 fL (9.1-12.4); NEUTROPHILS ABSOLUTE AUTO 8.51 K/mm3 (1.96-9.15); NEUTROPHILS PERCENT AUTO 74 % (41-73); Platelet Count 274 K/mm3 (150-400); RDW Coefficient Variation 19.4 % (11.7-14.2); RDW Standard Deviation 50.6 fL (35.1-46.3); Red Blood Cell Count 5.56 M/mm3 (4.30-5.90); White Blood Cell Count 11.56 K/mm3 (4.00-11.30)
[2024-03-30 04:03] LABS: Albumin, Blood 3.4 g/dL (3.4-5.0); Albumin/Globulin Ratio 0.9 (0.8-1.8); Bilirubin, Total 0.4 mg/dL (0.1-1.0); Bun/Creatinine Ratio 23.9 (12.0-20.0); Calcium, Blood 9.5 mg/dL (8.5-10.1); Creatinine, Blood 0.42 mg/dL (0.60-1.20); Globulin, Blood 3.8 g/dL (2.2-4.0); Potassium, Blood 3.4 mmol/L (3.5-5.5); Total Protein, Blood 7.2 g/dL (6.4-8.2)
[2024-03-30] MEDS ORDERED: DOXY100 PO (04:40)
[2024-03-30] MEDS ORDERED: TOPROL XL50 M1 PO (04:41)
[2024-03-30] MEDS ORDERED: PANTOPRAZOLE SO40 M2 PO (04:42)
[2024-03-30] MEDS ORDERED: LORA2 PO (04:42)
[2024-03-30] MEDS ORDERED: METF500 PO (04:43)
[2024-03-30] MEDS ORDERED: SITA100T2 PO (04:44)
[2024-03-30] MEDS ORDERED: SERT100 PO (04:45)
[2024-03-30] MEDS ORDERED: HYDHCL25 PO (04:47)
[2024-03-30 06:15] VITALS: BP 161/71
== END 2024-03-30 07:59 | disposition left against medical advice (07) ==
LOC: ER 02:51
PROVIDERS: Emergency Medicine
DX: R61 Generalized hyperhidrosis (principal); R53.83 Other fatigue; R53.1 Weakness; F17.210 Nicotine dependence, cigarettes, uncomplicated; E11.40 Type 2 diabetes mellitus with diabetic neuropathy, unspecified; I11.0 Hypertensive heart disease with heart failure; I50.9 Heart failure, unspecified; I25.2 Old myocardial infarction; Z79.899 Other long term (current) drug therapy
CPT/HCPCS: 74174; 80053; 83605; 83690; 85025; 96374-59; 99284-25; J1885; Q9967

== ENCOUNTER 2024-04-09 09:36 | Day surgery (SDC) | payer MEDICARE, OTHER ==
[~2024-04-09 09:36] MED LIST changes: +HYDHCL25 PO; +LORA2 PO; +METF500 PO; +PANTOPRAZOLE SO40 M2 PO; +SITA100T2 PO; +TOPROL XL50 M1 PO
[2024-04-09] MEDS ORDERED: Lidocaine HCl 4% Cream 5 GM ONE (14:11)
== END 2024-04-09 22:44 | disposition home or self-care (01) ==
LOC: WOUND 09:36
DX: T81.32XA Disruption of internal operation (surgical) wound, not elsewhere classified, initial encounter (principal); E11.51 Type 2 diabetes mellitus with diabetic peripheral angiopathy without gangrene; I70.201 Unspecified atherosclerosis of native arteries of extremities, right leg; T82.3 Mechanical complication of other vascular grafts; I10 Essential (primary) hypertension; I25.10 Atherosclerotic heart disease of native coronary artery without angina pectoris; J44.9 Chronic obstructive pulmonary disease, unspecified; F17.210 Nicotine dependence, cigarettes, uncomplicated; Z88.8 Allergy status to other drugs, medicaments and biological substances
CPT/HCPCS: A9270; G0463

== ENCOUNTER → 2024-04-10 | Outpatient (CLI) | payer MEDICARE, OTHER ==
[2024-04-10 20:05] LABS: CHOL/HDL RATIO 4.9; Cholesterol 195 mg/dL (50-200); HDL Cholesterol 40 mg/dL (>39); LDL/HDL RATIO 3.3; Low Density Lipoprotein Chol 131 mg/dL (0-110); Thyroid Stimulating Hormone 0.455 uIU/mL (0.360-4.800); Triglycerides 119 mg/dL (30-160); Very Low Density Lipoprot Chol 23 mg/dL (6-32)
== END | disposition home or self-care (01) ==
LOC: LAB 18:36 → LAB SHORT 18:36
PROVIDERS: Family Medicine
DX: F41.9 Anxiety disorder, unspecified (principal); E11.65 Type 2 diabetes mellitus with hyperglycemia; E11.8 Type 2 diabetes mellitus with unspecified complications
CPT/HCPCS: 80061; 83036; 84443

== ENCOUNTER 2024-04-17 02:38 | Day surgery (SDC) | payer MEDICARE, OTHER | END 2024-04-17 23:10 | disposition home or self-care (01) | LOC: WOUND 02:38 | DX: T81.32XD Disruption of internal operation (surgical) wound, not elsewhere classified, subsequent encounter (principal); E11.51 Type 2 diabetes mellitus with diabetic peripheral angiopathy without gangrene; I70.201 Unspecified atherosclerosis of native arteries of extremities, right leg; T82.3 Mechanical complication of other vascular grafts; X58.XXXA Exposure to other specified factors, initial encounter; Y83.8 Other surgical procedures as the cause of abnormal reaction of the patient, or of later complication, without mention of misadventure at the time of the procedure | CPT/HCPCS: 82947; G0463 ==

== ENCOUNTER 2024-04-17 14:50 | Observation (INO) | payer MEDICARE, OTHER ==
[~2024-04-17] VITALS: Ht 180.3 cm; Wt 87.0 kg
[~2024-04-17 14:50] MED LIST changes: -LORA2 PO
[2024-04-17 15:29] LABS: BASOPHILS ABSOLUTE AUTO 0.05 K/mm3 (0.00-0.23); BASOPHILS PERCENT AUTO 0 % (0-2); EOSINOPHILS ABSOLUTE AUTO 0.12 K/mm3 (0.00-0.68); EOSINOPHILS PERCENT AUTO 1 % (0-6); Hematocrit 34.8 % (37.0-53.0); Hemoglobin 11.4 g/dL (13.5-17.5); IMMATURE GRAN ABSOLUTE AUTO 0.18 K/mm3 (0.00-0.10); IMMATURE GRAN PERCENT AUTO 1 % (0-1); LYMPHOCYTES ABSOLUTE AUTO 0.17 K/mm3 (0.84-5.20); LYMPHOCYTES PERCENT AUTO 1 % (21-46); MONOCYTES ABSOLUTE AUTO 0.79 K/mm3 (0.16-1.47); MONOCYTES PERCENT AUTO 5 % (4-13); Mean Corpuscular HGB 24.5 pg (26.0-34.0); Mean Corpuscular HGB Conc 32.8 g/dL (31.5-36.5); Mean Corpuscular Volume 75 fL (80-100); NEUTROPHILS ABSOLUTE AUTO 15.11 K/mm3 (1.96-9.15); NEUTROPHILS PERCENT AUTO 92 % (41-73); Platelet Count 231 K/mm3 (150-400); RDW Coefficient Variation 17.6 % (11.7-14.2); RDW Standard Deviation 48.1 fL (35.1-46.3); Red Blood Cell Count 4.65 M/mm3 (4.30-5.90); White Blood Cell Count 16.42 K/mm3 (4.00-11.30)
[2024-04-17 15:52] LABS: Albumin, Blood 2.6 g/dL (3.4-5.0); Albumin/Globulin Ratio 0.6 (0.8-1.8); Bilirubin, Total 0.6 mg/dL (0.1-1.0); Bun/Creatinine Ratio 11.5 (12.0-20.0); Creatinine, Blood 0.61 mg/dL (0.60-1.20); Globulin, Blood 4.7 g/dL (2.2-4.0); Potassium, Blood 3.3 mmol/L (3.5-5.5); Total Protein, Blood 7.3 g/dL (6.4-8.2)
[2024-04-17] MEDS ORDERED: NS 1,000 ML IV ONE ×3 (16:20→23:20)
[2024-04-17] MEDS ORDERED: Ondansetron HCl 2 MG / ML 2ML Vial IV PRN ×2 (16:20→23:20)
[2024-04-17] MEDS ORDERED: Vancomycin HCL 1,000 MG in NS 250 ML IV ONE ×2 (16:20→18:10)
[2024-04-17] MEDS ORDERED: HYDROmorphone HCl/Pf 1MG SYR IV PRN (16:20)
[2024-04-17] MEDS ORDERED: NS 1,000 ML IV SCH (18:10)
[2024-04-17] MEDS ORDERED: Piperacillin/Tazobactam Sod 3.375 GM in NS 100 ML IV SCH (18:10)
[2024-04-17] MEDS ORDERED: Pantoprazole Sodium 40 MG Injection IV ONE ×2 (20:45→23:15)
[2024-04-17] MEDS ORDERED: LORazepam 2 MG/ML 1ML Injection IV ONE (20:45)
[2024-04-17] MEDS ORDERED: Ondansetron HCl 2 MG / ML 2ML Vial IV ONE (20:45)
[2024-04-17] MEDS ORDERED: FentaNYL Citrate 50 MCG/ML 2 ML Injection IV PRN (23:20)
[2024-04-18] MEDS ORDERED: Insulin Glargine-Yfgn 100 Unit/mL 3 ML SYR SC SCH
[2024-04-18] MEDS ORDERED: Piperacillin/Tazobactam Sod 4.5 GM in NS 100 ML IV SCH (00:20)
[2024-04-18] MEDS ORDERED: Potassium Chloride 40 MEQ in NS 250 ML IV ONE (00:25)
[2024-04-18 00:31] LABS: International Normalized Ratio 1.12; Prothrombin Time Results 11.9 Sec (9.7-11.5)
[2024-04-18 01:48] VITALS: BP 147/68
[2024-04-18] MEDS ORDERED: Vancomycin HCL 1,500 MG in NS 250 ML IV ONE ×2 (03:05→07:45)
[2024-04-18] MEDS ORDERED: HydrALAZINE HCl 20 MG / ML 1ML Vial IV PRN ×2 (03:55→14:00)
[2024-04-18] MEDS ORDERED: Heparin Sodium,Porcine/0.5 NS 500 ML IV SCH (04:05)
--- NOTE | 2024-04-18 04:29 | NUR ---
SHIFT SUMMARY PT A&O X4, ABLE TO MAKE NEEDS KNOWN. PT TRANSFERRED TO PCU 20 FROM ER AT APPROXIMATELY 0140. PT SLID TO HOSPITAL BED. PT IS QUITE DISAGREEABLE AND IS EXPRESSIVE OF HOW HE DOES NOT WISH TO BE HERE AND WANTS TO BE LEFT ALONE. PT CONTINUES TO REFUSE A SECOND IV, POTASSIUM GTT RUNNING AT THIS TIME. UNABLE TO RUN FLUIDS OR ZOSYN DUE TO LIMITED IV ACCESS. EDUCATED PT ON IMPORTANCE OF OBTAINING MORE IV ACCESS FOR HIS TREATMENT, IV ATTEMPTED BY RN PICU, ALTHOUGH UNSUCCESSFUL. ANOTHER RN TO TRY. PT ALSO CONTINUES TO ASK FOR WATER OR ICE CHIPS, EDUCATED PT ON IMPORTANCE OF REMAINING NPO. WOUND TO R GROIN APPEARS RED AND WARM. PT REPORTS PAIN, MEDICATED PER EMAR. PT IS UNABLE TO PROVIDE HOME MEDICATION LIST, REPORTS THAT HIS CAN COME BY LATER AND PROVIDE THIS. PT IS RESTING IN BED, CALL LIGHT WITHIN REACH, BREATHING EVEN AND UNLABORED.
--- NOTE | 2024-04-18 05:20 | NUR ---
UPDATE BEHAVIOR AT APPROXIMATELY 0520 PT BECAME AGITATED AND BEGAN YELLING AT STAFF AFTER RN PLACED ULTRASOUNDED GUIDED IV. PT REPORTS FEELING "FRUSTRATED" AND DOES NOT WANT STAFF TO PROVIDE HIM CARE. HE YELLED "THIS IS BULLSHIT" AND CONTINUED TO BERATE STAFF. GLUING MACHINE OPERATOR SPOKE WITH PT REGARDING BEHAVIOR. STAFF LEFT PT'S ROOM AND CLOSED DOOR ALLOWING FOR UNINTERRUPTED REST.
[2024-04-18 05:26] LABS: Hematocrit 31.1 % (37.0-53.0); Hemoglobin 10.2 g/dL (13.5-17.5); Mean Corpuscular HGB 24.8 pg (26.0-34.0); Mean Corpuscular HGB Conc 32.8 g/dL (31.5-36.5); Mean Corpuscular Volume 76 fL (80-100); Platelet Count 220 K/mm3 (150-400); RDW Coefficient Variation 17.4 % (11.7-14.2); RDW Standard Deviation 47.8 fL (35.1-46.3); Red Blood Cell Count 4.12 M/mm3 (4.30-5.90); White Blood Cell Count 15.13 K/mm3 (4.00-11.30)
[2024-04-18 05:48] LABS: BAND PERCENT MAN 17 % (0-8); BASOPHILS PERCENT MAN 0 % (0-2); EOSINOPHILS ABSOLUTE MAN 0.15 K/mm3 (0.00-0.68); EOSINOPHILS PERCENT MAN 1 % (0-6); LYMPHOCYTES ABSOLUTE MAN 0.15 K/mm3 (0.84-5.20); LYMPHOCYTES PERCENT MAN 1 % (21-46); METAMYELOCYTE ABSOLUTE MAN 0.15 K/mm3 (0.00-0.00); METAMYELOCYTE PERCENT MAN 1 % (0-0); MONOCYTES ABSOLUTE MAN 1.05 K/mm3 (0.16-1.47); MONOCYTES PERCENT MAN 7 % (4-13); MYELOCYTE ABSOLUTE MAN 0.15 K/mm3 (0.00-0.00); MYELOCYTE PERCENT MAN 1 % (0-0); NEUTROPHILS ABSOLUTE MAN 13.46 K/mm3 (1.96-9.15); SEG NEUTROPHILS PERCENT MAN 72 % (41-73); TOTAL CELLS COUNTED 100
[2024-04-18 06:06] LABS: Albumin, Blood 2.2 g/dL (3.4-5.0); Albumin/Globulin Ratio 0.5 (0.8-1.8); Bilirubin, Total 0.7 mg/dL (0.1-1.0); Bun/Creatinine Ratio 10.6 (12.0-20.0); Calcium, Blood 8.3 mg/dL (8.5-10.1); Creatinine, Blood 0.56 mg/dL (0.60-1.20); Globulin, Blood 4.1 g/dL (2.2-4.0); Potassium, Blood 3.3 mmol/L (3.5-5.5); Total Protein, Blood 6.3 g/dL (6.4-8.2)
[2024-04-18] MEDS ORDERED: LORazepam 1 MG Tab PO PRN (06:20)
[2024-04-18] MEDS ORDERED: OxyCODONE 10/Acetamin 325 TABLET PO PRN (06:20)
[2024-04-18] MEDS ORDERED: Albuterol 2.5 MG/3 ML VIAL INH PRN (06:20)
[2024-04-18] MEDS ORDERED: Pantoprazole Sodium 40 MG Tab PO SCH ×2 (06:34→10:05)
[2024-04-18] MEDS ORDERED: Insulin Human Lispro 100 Units/ML 3ML Syringe SC SCH ×2 (07:30→12:00)
[2024-04-18 07:46] VITALS: BP 140/65
--- NOTE | 2024-04-18 07:49 | NUR ---
THIS RN TO ROOM TO MEDICATE FOR PAIN, PT REPORTS "I HOPE YOU HAVE DILAUDID FOR ME" HE ID UPDATED THAT HE HAS HIS HOME REGIMEN OF PAIN MEDICATIONS THAT INCLUDES OXYCODONE, DULOXETINE AND LYRICA FOR CHRONIC BACK PAIN. PT STS "ONLY DILAUDID WORKS FOR PAIN" WHEN ASKED WHAT HE TAKES AT HOME PT STS "I TAKE OXYCONTIN" WHEN ASKED IF THAT CONTROLS HIS BACK PAIN WELL HE STATES "YES IT DOES" PROCEEDED WITH OXYCODONE FOR PAIN MANAGEMENT. PT STS "I ALWAYS GET DILAUDID HERE FOR PAIN"
[2024-04-18] MEDS ORDERED: Vancomycin HCL 1,250 MG in NS 250 ML IV SCH ×3 (08:00→20:00)
[2024-04-18] MEDS ORDERED: Potassium Chloride 20 MEQ TabCR PO ONE (09:00)
[2024-04-18] MEDS ORDERED: Sertraline HCl 100 MG Tab PO SCH (09:00)
[2024-04-18] MEDS ORDERED: DULoxetine HCL 60 MG Capsule DR PO SCH (09:00)
[2024-04-18] MEDS ORDERED: Pregabalin 75 MG Cap PO SCH (09:00)
[2024-04-18] MEDS ORDERED: Varenicline Tartrate 1 MG Tablet PO SCH (09:00)
[2024-04-18] MEDS ORDERED: QUEtiapine Fumarate 25 MG Tab PO SCH (09:00)
[2024-04-18] MEDS ORDERED: Metoprolol Succinate 50 MG TABCR PO SCH (09:00)
[2024-04-18 11:30] VITALS: BP 118/61
[2024-04-18 15:00] VITALS: BP 118/61
--- NOTE | 2024-04-18 16:00 | NUR ---
report called to zurdo james who will assume pt care. pt is enroute via ems
[2024-04-18] MEDS ORDERED: Mirtazapine 30 MG Tab PO SCH (21:00)
--- NOTE | 2024-05-09 04:23 | NUR ---
REVIEWED PT'S INFORMATION FOR CURRENT ADMISSION
== END 2024-04-18 17:24 | disposition short-term general hospital (02) ==
LOC: ER 14:50 → PCU 14:51
PROVIDERS: Physician Assistant; ADMIT Internal Medicine
DX: T81.49XA Infection following a procedure, other surgical site, initial encounter (principal); E11.51 Type 2 diabetes mellitus with diabetic peripheral angiopathy without gangrene; E11.40 Type 2 diabetes mellitus with diabetic neuropathy, unspecified; E11.65 Type 2 diabetes mellitus with hyperglycemia; I25.10 Atherosclerotic heart disease of native coronary artery without angina pectoris; I25.2 Old myocardial infarction; I11.0 Hypertensive heart disease with heart failure; I50.9 Heart failure, unspecified; G89.29 Other chronic pain; M54.9 Dorsalgia, unspecified; F17.210 Nicotine dependence, cigarettes, uncomplicated; L02.214 Cutaneous abscess of groin; I82.402 Acute embolism and thrombosis of unspecified deep veins of left lower extremity; Z89.612 Acquired absence of left leg above knee; A41.9 Sepsis, unspecified organism; E87.20 Acidosis, unspecified; Z88.8 Allergy status to other drugs, medicaments and biological substances; Z79.4 Long term (current) use of insulin; Z79.899 Other long term (current) drug therapy; Y83.8 Other surgical procedures as the cause of abnormal reaction of the patient, or of later complication, without mention of misadventure at the time of the procedure; T81.32XD Disruption of internal operation (surgical) wound, not elsewhere classified, subsequent encounter; I70.201 Unspecified atherosclerosis of native arteries of extremities, right leg; T82.3 Mechanical complication of other vascular grafts; X58.XXXA Exposure to other specified factors, initial encounter; M54.50 Low back pain, unspecified; M51.36 Other intervertebral disc degeneration, lumbar region
CPT/HCPCS: 36415; 72100; 73701; 80053; 82947; 83605; 83735; 83880; 84145; 85025; 85610; 85730; 87040; 94640; 94664; 94760; 96361; 96365-59; 96366; 96366-59; 96367; 96367-59; 96375; 96375-59; 96376; 96376-59; 99285-25; A9270; C9113; G0378; G0463; J1170; J1644; J1815; J2060; J2405; J2543; J3010; J3370; J3480; J7030; J7050; Q9967

== ENCOUNTER → 2024-04-29 | Outpatient (CLI) | payer MEDICARE, OTHER ==
[~2024-04-29] MED LIST changes: +LORA2 PO
[2024-04-29 13:18] LABS: BASOPHILS ABSOLUTE AUTO 0.13 K/mm3 (0.00-0.23); BASOPHILS PERCENT AUTO 1 % (0-2); EOSINOPHILS PERCENT AUTO 2 % (0-6); Hematocrit 32.8 % (37.0-53.0); Hemoglobin 10.3 g/dL (13.5-17.5); IMMATURE GRAN ABSOLUTE AUTO 0.11 K/mm3 (0.00-0.10); IMMATURE GRAN PERCENT AUTO 1 % (0-1); LYMPHOCYTES PERCENT AUTO 19 % (21-46); MONOCYTES PERCENT AUTO 10 % (4-13); Mean Corpuscular HGB 24.2 pg (26.0-34.0); Mean Corpuscular HGB Conc 31.4 g/dL (31.5-36.5); Mean Corpuscular Volume 77 fL (80-100); Mean Platelet Volume 9.6 fL (9.1-12.4); NEUTROPHILS PERCENT AUTO 67 % (41-73); Platelet Count 351 K/mm3 (150-400); RDW Coefficient Variation 17.8 % (11.7-14.2); RDW Standard Deviation 49.8 fL (35.1-46.3); Red Blood Cell Count 4.25 M/mm3 (4.30-5.90); White Blood Cell Count 10.54 K/mm3 (4.00-11.30)
[2024-04-29 15:05] LABS: Alanine Aminotransfer (ALT/SGP 17 U/L (12-78); Albumin, Blood 2.7 g/dL (3.4-5.0); Albumin/Globulin Ratio 0.7 (0.8-1.8); Alk Phos 129 U/L (50-136); Anion Gap 9 mmol/L (3-11); Aspartate Aminotrans (AST/SGOT 9 U/L (12-37); Bilirubin, Total 0.2 mg/dL (0.1-1.0); Blood Urea Nitrogen 17 mg/dL (8-24); Bun/Creatinine Ratio 24.4 (12.0-20.0); CO2, Blood 27 mmol/L (21-32); Calcium, Blood 8.6 mg/dL (8.5-10.1); Chloride, Blood 103 mmol/L (98-108); Globulin, Blood 3.8 g/dL (2.2-4.0); Glomerular Filtration Rate 104 (60-); Glucose, Blood 195 mg/dL (70-99); Potassium, Blood 3.9 mmol/L (3.5-5.5); Sodium, Blood 135 mmol/L (136-145); Total Protein, Blood 6.5 g/dL (6.4-8.2); Vancomycin, Trough 31.3 ug/mL (5.0-10.0)
== END | disposition home or self-care (01) ==
LOC: LAB SHORT 11:15 → LAB 11:15
PROVIDERS: Family Medicine
DX: T82.7XXA Infection and inflammatory reaction due to other cardiac and vascular devices, implants and grafts, initial encounter (principal); T81.42XA Infection following a procedure, deep incisional surgical site, initial encounter
CPT/HCPCS: 80053; 80202; 85025; 85651; 86140

== ENCOUNTER → 2024-05-01 | Outpatient (CLI) | payer MEDICARE, OTHER ==
[~2024-05-01] MED LIST changes: +ALBU2.5V5 INH; +BASAGLAR K100 UNIT/1 SC; +HUMALOG TE100 UNIT/1 SC; +LIDO5TO TOP; -LORA2 PO; +OXYCONTIN20 M1 PO
[2024-05-01 14:55] LABS: Anion Gap 9 mmol/L (3-11); Blood Urea Nitrogen 13 mg/dL (8-24); Bun/Creatinine Ratio 22.3 (12.0-20.0); CO2, Blood 28 mmol/L (21-32); Chloride, Blood 100 mmol/L (98-108); Creatinine, Blood 0.58 mg/dL (0.60-1.20); Glomerular Filtration Rate 110 (60-); Glucose, Blood 193 mg/dL (70-99); Sodium, Blood 133 mmol/L (136-145); Vancomycin, Trough 6.1 ug/mL (5.0-10.0)
[2024-05-01 15:12] LABS: BASOPHILS ABSOLUTE AUTO 0.17 K/mm3 (0.00-0.23); BASOPHILS PERCENT AUTO 2 % (0-2); EOSINOPHILS ABSOLUTE AUTO 0.19 K/mm3 (0.00-0.68); EOSINOPHILS PERCENT AUTO 2 % (0-6); Hematocrit 35.9 % (37.0-53.0); Hemoglobin 11.5 g/dL (13.5-17.5); IMMATURE GRAN ABSOLUTE AUTO 0.05 K/mm3 (0.00-0.10); IMMATURE GRAN PERCENT AUTO 1 % (0-1); LYMPHOCYTES ABSOLUTE AUTO 2.15 K/mm3 (0.84-5.20); LYMPHOCYTES PERCENT AUTO 23 % (21-46); MONOCYTES ABSOLUTE AUTO 0.73 K/mm3 (0.16-1.47); MONOCYTES PERCENT AUTO 8 % (4-13); Mean Corpuscular HGB 24.6 pg (26.0-34.0); Mean Corpuscular Volume 77 fL (80-100); Mean Platelet Volume 10.1 fL (9.1-12.4); NEUTROPHILS ABSOLUTE AUTO 6.09 K/mm3 (1.96-9.15); NEUTROPHILS PERCENT AUTO 65 % (41-73); Platelet Count 410 K/mm3 (150-400); RDW Coefficient Variation 17.3 % (11.7-14.2); RDW Standard Deviation 48.4 fL (35.1-46.3); Red Blood Cell Count 4.67 M/mm3 (4.30-5.90); White Blood Cell Count 9.38 K/mm3 (4.00-11.30)
== END | disposition home or self-care (01) ==
LOC: LAB SHORT 13:28 → LAB 13:28
PROVIDERS: Internal Medicine Infectious Disease
DX: T81.42XA Infection following a procedure, deep incisional surgical site, initial encounter (principal); T82.7XXA Infection and inflammatory reaction due to other cardiac and vascular devices, implants and grafts, initial encounter; L02.214 Cutaneous abscess of groin; B95.62 Methicillin resistant Staphylococcus aureus infection as the cause of diseases classified elsewhere
CPT/HCPCS: 80048; 80202; 85025; 85651; 86140

== ENCOUNTER 2024-05-08 21:42 | Inpatient (IN) | payer MEDICARE, OTHER ==
[~2024-05-08] VITALS: Ht 180.3 cm; Wt 88.6 kg
[~2024-05-08 21:42] MED LIST changes: -ALBU2.5V5 INH; -BASAGLAR K100 UNIT/1 SC; -HUMALOG TE100 UNIT/1 SC; -LIDO5TO TOP; -OXYCONTIN20 M1 PO
[2024-05-08 22:37] LABS: Magnesium, Blood 1.7 mg/dL (1.6-2.4)
[2024-05-08 22:51] LABS: BASOPHILS ABSOLUTE AUTO 0.14 K/mm3 (0.00-0.23); BASOPHILS PERCENT AUTO 1 % (0-2); EOSINOPHILS ABSOLUTE AUTO 1.11 K/mm3 (0.00-0.68); EOSINOPHILS PERCENT AUTO 8 % (0-6); Hematocrit 36.7 % (37.0-53.0); Hemoglobin 11.9 g/dL (13.5-17.5); IMMATURE GRAN ABSOLUTE AUTO 0.08 K/mm3 (0.00-0.10); IMMATURE GRAN PERCENT AUTO 1 % (0-1); LYMPHOCYTES ABSOLUTE AUTO 1.36 K/mm3 (0.84-5.20); LYMPHOCYTES PERCENT AUTO 10 % (21-46); MONOCYTES ABSOLUTE AUTO 0.72 K/mm3 (0.16-1.47); MONOCYTES PERCENT AUTO 5 % (4-13); Mean Corpuscular HGB 25.1 pg (26.0-34.0); Mean Corpuscular HGB Conc 32.4 g/dL (31.5-36.5); Mean Corpuscular Volume 77 fL (80-100); Mean Platelet Volume 10.1 fL (9.1-12.4); NEUTROPHILS ABSOLUTE AUTO 10.55 K/mm3 (1.96-9.15); NEUTROPHILS PERCENT AUTO 76 % (41-73); Platelet Count 262 K/mm3 (150-400); RDW Coefficient Variation 17.1 % (11.7-14.2); RDW Standard Deviation 47.6 fL (35.1-46.3); Red Blood Cell Count 4.75 M/mm3 (4.30-5.90); White Blood Cell Count 13.96 K/mm3 (4.00-11.30)
[2024-05-08 22:54] LABS: International Normalized Ratio 0.95; Prothrombin Time Results 10.2 Sec (9.7-11.5)
[2024-05-08 22:55] LABS: Alanine Aminotransfer (ALT/SGP 20 U/L (12-78); Albumin, Blood 3.1 g/dL (3.4-5.0); Albumin/Globulin Ratio 0.8 (0.8-1.8); Alk Phos 161 U/L (50-136); Anion Gap 15 mmol/L (3-11); Aspartate Aminotrans (AST/SGOT 10 U/L (12-37); Bilirubin, Direct <0.1 mg/dL (0.0-0.3); Bilirubin, Indirect Unable to Calculate mg/dL (0.1-0.7); Bilirubin, Total 0.3 mg/dL (0.1-1.0); Blood Urea Nitrogen 12 mg/dL (8-24); Bun/Creatinine Ratio 20.3 (12.0-20.0); CO2, Blood 22 mmol/L (21-32); Calcium, Blood 8.5 mg/dL (8.5-10.1); Chloride, Blood 106 mmol/L (98-108); Creatinine, Blood 0.59 mg/dL (0.60-1.20); Globulin, Blood 3.9 g/dL (2.2-4.0); Glomerular Filtration Rate 109 (60-); Glucose, Blood 121 mg/dL (70-99); Phosphorus, Blood 3.7 mg/dL (2.5-4.9); Potassium, Blood 3.6 mmol/L (3.5-5.5); Sodium, Blood 139 mmol/L (136-145)
[2024-05-08 23:17] LABS: Influenza A, PCR NEGATIVE (NEGATIVE); Influenza B, PCR NEGATIVE (NEGATIVE); Resp Syncytial Virus, PCR NEGATIVE (NEGATIVE); SARS-Cov-2 (COVID-19) PCR, MMC NEGATIVE (NEGATIVE)
[2024-05-08] MEDS ORDERED: Ondansetron HCl 2 MG / ML 2ML Vial IV ONE (23:55)
[2024-05-08] MEDS ORDERED: HYDROmorphone HCl/Pf 1MG SYR IV ONE (23:55)
[2024-05-09] VITALS (8 sets, daily range): BP systolic 168–178; BP diastolic 78–79
[2024-05-09] MEDS ORDERED: Piperacillin/Tazobactam Sod 3.375 GM in NS 100 ML IV ONE (02:30)
[2024-05-09] MEDS ORDERED: NS 1,000 ML IV SCH ×3 (02:35→04:00)
[2024-05-09] MEDS ORDERED: Vancomycin HCL 1,500 MG in NS 250 ML IV ONE (02:35)
[2024-05-09] MEDS ORDERED: LORazepam 1 MG Tab PO ONE (03:25)
[2024-05-09] MEDS ORDERED: Acetaminophen 325 MG TABLET PO PRN (03:55)
[2024-05-09] MEDS ORDERED: ALBU2.5V5 INH (04:10)
[2024-05-09] MEDS ORDERED: HUMALOG TE100 UNIT/1 SC (04:11)
[2024-05-09] MEDS ORDERED: BASAGLAR K100 UNIT/1 SC (04:13)
[2024-05-09] MEDS ORDERED: OXYCONTIN20 M1 PO (04:16)
[2024-05-09] MEDS ORDERED: LIDO5TO TOP (04:17)
--- NOTE | 2024-05-09 06:07 | NUR ---
ADMIT NOTE 63 YR OLD MALE ADMITTED TO FLOOR FROM THE ED WITH DX OF RIGHT GROIN ABSCESS. ED RN REPORTED PT HAD HAD A RECENT AORTIC BYPASS WITH ACCESS THROUGH THE RIGHT GROIN AND IT HAD BECOME INFECTED. WOUND VAC TO RIGHT GROIN. PT REFUSED SKIN CHECK, STATED HE HAD NO SKIN ANOMALIES. PT HAS LEFT AKA. AFFECT AND BEHAVIOR EASILY AGITATED. ORIENTED TO USE OF CALL LIGHT. CALL LIGHT IN REACH, BED RAILS UP X 2 AND BED IN LOW POSITION FOR SAFETY.
[2024-05-09] MEDS ORDERED: Piperacillin/Tazobactam Sod 3.375 GM in NS 100 ML IV SCH (08:00)
[2024-05-09] MEDS ORDERED: Lactobacil 2-S.Thermo-Bifido 1 1 Cap PO SCH (09:00)
[2024-05-09 09:43] LABS: BASOPHILS ABSOLUTE AUTO 0.09 K/mm3 (0.00-0.23); BASOPHILS PERCENT AUTO 1 % (0-2); EOSINOPHILS ABSOLUTE AUTO 0.66 K/mm3 (0.00-0.68); EOSINOPHILS PERCENT AUTO 7 % (0-6); Hematocrit 35.4 % (37.0-53.0); Hemoglobin 11.3 g/dL (13.5-17.5); IMMATURE GRAN ABSOLUTE AUTO 0.06 K/mm3 (0.00-0.10); IMMATURE GRAN PERCENT AUTO 1 % (0-1); LYMPHOCYTES ABSOLUTE AUTO 1.34 K/mm3 (0.84-5.20); LYMPHOCYTES PERCENT AUTO 15 % (21-46); MONOCYTES ABSOLUTE AUTO 0.44 K/mm3 (0.16-1.47); MONOCYTES PERCENT AUTO 5 % (4-13); Mean Corpuscular HGB 24.5 pg (26.0-34.0); Mean Corpuscular HGB Conc 31.9 g/dL (31.5-36.5); Mean Corpuscular Volume 77 fL (80-100); Mean Platelet Volume 10.4 fL (9.1-12.4); NEUTROPHILS ABSOLUTE AUTO 6.47 K/mm3 (1.96-9.15); NEUTROPHILS PERCENT AUTO 71 % (41-73); Platelet Count 252 K/mm3 (150-400); RDW Coefficient Variation 16.9 % (11.7-14.2); RDW Standard Deviation 46.9 fL (35.1-46.3); Red Blood Cell Count 4.62 M/mm3 (4.30-5.90); White Blood Cell Count 9.06 K/mm3 (4.00-11.30)
[2024-05-09 10:02] LABS: Bun/Creatinine Ratio 18.5 (12.0-20.0); Calcium, Blood 8.4 mg/dL (8.5-10.1); Creatinine, Blood 0.54 mg/dL (0.60-1.20)
[2024-05-09] MEDS ORDERED: LORazepam 1 MG Tab PO PRN (12:55)
--- NOTE | 2024-05-09 14:06 | NUR ---
PER DR. MEYERS AWAITING STATUS ON POSSIBLE TRANSFER; THEREFORE WAIT UNTIL PLACING HOSPITAL SUPPLIED WOUND VAC SYSTEM. CALL ALSO MADE TO DR. MEYERS ABOUT PRN ATIVAN FOR PATIENT; PER DR. MEYERS OKAY TO ADD PATIENT'S HOME DOSE. ORDER PLACED.
[2024-05-09] MEDS ORDERED: Vancomycin HCL 1,250 MG in NS 250 ML IV SCH (16:00)
[2024-05-09] MEDS ORDERED: OxyCODONE HCL 5 MG TAB PO PRN (16:40)
[2024-05-09] MEDS ORDERED: HYDROmorphone HCl/Pf 1MG SYR IV PRN (16:50)
--- NOTE | 2024-05-09 17:34 | NUR ---
SHIFT SUMMARY: PT IS A&OX4 AND CAN TRANSFER FROM A WHEELCHAIR TO THE BED AND VICE VERSA WITH ASSISTANCE TO THE RESTROOM. HE HAS BE COMPLAINING OF BEING HOT/COLD AND CHILLS; NO FEVERS. HE C/O PAIN IN HIS R GROIN WELL. PATIENT EMOTIONAL AND REQUIRES A LOT OF ASSISTANCE WITH ADLS/CARE. PATIENT HAS BEEN PRESENT THIS AFTERNOON AND TAKE CARE OF MOST PATIENT'S NEEDS; PATIENT DOES NOT DO MUCH OF HIS OWN CARE FOR HIMSELF THOUGH HE IS CAPABLE. HE IS IN NEED A HOSPITAL SUPPLIED WOUND VAC TO BE PLACED NOW DUE TO BEING OFFICIALLY ADMITTED. STILL WEARING HOME WOUND VAC SYSTEM, BUT IT CONSTANTLY LEAK ALARMS; MACHINE AND SITE CHECKED AND REENFORCED, NO SIGNS OF LEAKS. PATIENT AND STATE THAT SINCE IT WAS CHANGED YESTERDAY IT HAS BEEN HAVING PROBLEMS. HE IS IN BED, SLEEPING-RESP EVEN AND UNLABORED, CALL LIGHT WITHIN REACH, NO SIGNS OR SYMPTOMS OF DISTRESS, PLAN OF CARE ONGOING.
--- NOTE | 2024-05-09 18:29 | NUR ---
PATIENT CONTINUED TO COMPLAIN OF8-9/10 PAIN AFTER ADMINISTRATION OF 5MG OF OXYCODONE. SAW THAT 1MG OF IV DILAUDID WAS ORDERED WELL; I REVIEWED THE CHART WITH HEALTHCARE ECONOMICS CONSULTANT AND SAW THAT PATIENT HAS A HOME REGIMEN FOR PAIN MANAGEMENT AND A CALL WAS MADE TO DR. MEYERS TO DISCUSSED. DICISION WAS MADE TO GET THE PATIENT ON HIS HOME REGIMEN AND TO GIVE ONE TIME DOSE OF IV DILAUDID. WILL UPDATE ORDERS TO MATCH.
[2024-05-09] MEDS ORDERED: OxyCODONE 10/Acetamin 325 TABLET PO PRN (18:35)
[2024-05-09] MEDS ORDERED: OxyCODONE HCL 20 MG TABCR PO SCH (21:00)
--- NOTE | 2024-05-09 21:45 | NUR ---
PT HAS BED AT [facility] FOR COBRA TRANSFER, SPOKE WITH PT AND PT'S , REPORT HAS BEEN GIVEN TO RN AT [facility], TRANSPORT HAS BEEN ARRANGED.
--- NOTE | 2024-05-09 22:43 | NUR ---
TRANSPORTERS HERE FOR COBRA TRANSFER. PT TRANSFERRED TO [facility] AND OUT OF HOSPITAL AT THIS TIME.
--- NOTE | 2024-05-09 23:05 | NUR ---
SHIFT SUMMARY PATIENT TRANSFER TO [facility] PATIENT COMPLAINED OF PAIN 9 OF 10. PATIENT HAD BEEN GIVEN ONE TIME ORDER OF DILAUDID AND ROXYCODONE AT 1900. PATIENT ATE A BURGER WITH . AT 2100 PATIENT WANTED MORE DILAUDID. ADVISED PATIENT THAT IT WAS A ONE TIME ORDER BUT HE DID HAVE SCHEDULED 20MG OXY AND CAOULD ALSO TAKE ATIVAN FOR ANXIETY. PATIENT AGREED. TRANSFER TEAM ARRIVED AT APPROXIMATELY 2230. REPORT GIVEN TO TRANSPORT WELL [facility] PALAK YEUNG RN. PATIENT VITAL SIGNS TAKEN BEFORE DEPARTURE. PATIENT LEFT WITH WOUND VAC ALERT AND ORIENTATED X4.
== END 2024-05-09 22:38 | disposition short-term general hospital (02) | DRG 862 ==
LOC: ER 21:42 → MEDS 21:43
PROVIDERS: Emergency Medicine; Family Medicine; ADMIT Internal Medicine
DX: T81.41XA Infection following a procedure, superficial incisional surgical site, initial encounter (principal); A41.9 Sepsis, unspecified organism; R65.20 Severe sepsis without septic shock; L02.214 Cutaneous abscess of groin; E87.20 Acidosis, unspecified; F41.9 Anxiety disorder, unspecified; F32.A Depression, unspecified; I25.10 Atherosclerotic heart disease of native coronary artery without angina pectoris; I11.0 Hypertensive heart disease with heart failure; I50.9 Heart failure, unspecified; E11.40 Type 2 diabetes mellitus with diabetic neuropathy, unspecified; E11.51 Type 2 diabetes mellitus with diabetic peripheral angiopathy without gangrene; F17.200 Nicotine dependence, unspecified, uncomplicated; M51.36 Other intervertebral disc degeneration, lumbar region; M41.9 Scoliosis, unspecified; Z89.612 Acquired absence of left leg above knee; Z95.820 Peripheral vascular angioplasty status with implants and grafts; Z86.711 Personal history of pulmonary embolism; Z88.8 Allergy status to other drugs, medicaments and biological substances; Z79.84 Long term (current) use of oral hypoglycemic drugs; Z79.01 Long term (current) use of anticoagulants; I25.2 Old myocardial infarction; Z86.718 Personal history of other venous thrombosis and embolism; Z95.1 Presence of aortocoronary bypass graft; Z95.5 Presence of coronary angioplasty implant and graft
CPT/HCPCS: 0241U; 36415; 71045; 73701; 80048; 80053; 82248; 83605; 83735; 84100; 84484; 85025; 85610; 85730; 93005; 93010; 96365-59; 96366; 96367; 96375; 99285-25; A9270; G0378; J1170; J2405; J2543; J3370; J7030; J7050; Q9967

== ENCOUNTER → 2025-01-05 | Outpatient (CLI) | payer MEDICARE, OTHER ==
[~2025-01-05] MED LIST changes: +ALBU2.5V5 INH; +BASAGLAR K100 UNIT/1 SC; +HUMALOG TE100 UNIT/1 SC; +LIDO5TO TOP; +OXYCONTIN20 M1 PO
== END | disposition home or self-care (01) ==
LOC: LAB 18:26 → LAB SHORT 18:26
DX: T81.30XA Disruption of wound, unspecified, initial encounter (principal)
CPT/HCPCS: 87070; 87075; 87077; 87147; 87186; 87205

== ENCOUNTER 2025-09-04 18:11 | Emergency (ER) | payer MEDICARE, OTHER ==
[~2025-09-04] VITALS: Ht 180.3 cm; Wt 93.0 kg
[2025-09-04 19:19] LABS: BASOPHILS ABSOLUTE AUTO 0.12 K/mm3 (0.00-0.23); BASOPHILS PERCENT AUTO 1 % (0-2); EOSINOPHILS ABSOLUTE AUTO 0.40 K/mm3 (0.00-0.68); EOSINOPHILS PERCENT AUTO 4 % (0-6); Hematocrit 48.5 % (37.0-53.0); Hemoglobin 16.3 g/dL (13.5-17.5); IMMATURE GRAN ABSOLUTE AUTO 0.06 K/mm3 (0.00-0.10); IMMATURE GRAN PERCENT AUTO 1 % (0-1); LYMPHOCYTES ABSOLUTE AUTO 2.25 K/mm3 (0.84-5.20); LYMPHOCYTES PERCENT AUTO 22 % (21-46); MONOCYTES ABSOLUTE AUTO 0.67 K/mm3 (0.16-1.47); MONOCYTES PERCENT AUTO 7 % (4-13); Mean Corpuscular HGB Conc 33.6 g/dL (31.5-36.5); Mean Corpuscular Volume 86 fL (80-100); NEUTROPHILS ABSOLUTE AUTO 6.65 K/mm3 (1.96-9.15); NEUTROPHILS PERCENT AUTO 66 % (41-73); NRBC ABSOLUTE 0.00 K/mm3 (0.00-0.02); NRBC Auto 0.0 /100 WBC (0.0-0.2); Platelet Count 201 K/mm3 (150-400); RDW Coefficient Variation 14.7 % (11.7-14.2); RDW Standard Deviation 46.6 fL (35.1-46.3)
[2025-09-04 19:39] LABS: Alanine Aminotransfer (ALT/SGP 32.0 U/L (12-78); Albumin, Blood 3.7 g/dL (3.4-5.0); Albumin/Globulin Ratio 1.0 (0.8-1.8); Anion Gap 12.0 mmol/L (3-11); Aspartate Aminotrans (AST/SGOT 12.0 U/L (12-37); Bilirubin, Total 0.2 mg/dL (0.1-1.0); Blood Urea Nitrogen 14.0 mg/dL (8-24); CO2, Blood 23.0 mmol/L (21-32); Calcium, Blood 9.0 mg/dL (8.5-10.1); Chloride, Blood 100.0 mmol/L (98-108); Creatinine, Blood 0.59 mg/dL (0.60-1.20); Globulin, Blood 3.8 g/dL (2.2-4.0); Glucose, Blood 222.0 mg/dL (70-99); Potassium, Blood 4.0 mmol/L (3.5-5.5); Sodium, Blood 131.0 mmol/L (136-145); Total Protein, Blood 7.5 g/dL (6.4-8.2)
[2025-09-04 20:10] LABS: Source, Urine Clean Catch
[2025-09-04 20:16] LABS: Bilirubin, Urine Neg (Neg); Glucose Qualitative, Urine 4+ (Neg); Ketones, Urine Neg (Neg); Leukocyte Esterase, Urine Neg (Neg); Protein, Urine 1+ (Neg); Specific Gravity, Urine 1.015 (1.003-1.022); Urobilinogen, Urine NORM (Normal)
[2025-09-04 20:31] LABS: Color, Urine Yellow (P-Yellow)
[2025-09-04] MEDS ORDERED: CEPH500 PO (22:08)
[2025-09-04] MEDS ORDERED: RX Prepack 6 Tabs Oxycodone 5mg UD ONE (22:10)
[2025-09-04 22:50] VITALS: BP 155/76
== END 2025-09-04 23:00 | disposition home or self-care (01) ==
LOC: ER 18:11
PROVIDERS: Student in an Organized Health Care Education/Training Program
DX: L03.115 Cellulitis of right lower limb (principal); E87.1 Hypo-osmolality and hyponatremia; E87.20 Acidosis, unspecified; S20.212A Contusion of left front wall of thorax, initial encounter; E11.40 Type 2 diabetes mellitus with diabetic neuropathy, unspecified; F17.210 Nicotine dependence, cigarettes, uncomplicated; I25.10 Atherosclerotic heart disease of native coronary artery without angina pectoris; I11.0 Hypertensive heart disease with heart failure; I50.9 Heart failure, unspecified; Z89.612 Acquired absence of left leg above knee; Z88.8 Allergy status to other drugs, medicaments and biological substances; Z79.4 Long term (current) use of insulin; Z79.899 Other long term (current) drug therapy; W18.30XA Fall on same level, unspecified, initial encounter
CPT/HCPCS: 71046; 73630; 74177; 80053; 83605; 83690; 83880; 84484; 85025; 93005; 93010; 99284-25; A9270; Q9967

== ENCOUNTER 2025-09-10 16:37 | Inpatient (IN) | payer MEDICARE, OTHER ==
[~2025-09-10] VITALS: Ht 180.3 cm; Wt 102.4 kg
[2025-09-10 18:08] LABS: BASOPHILS ABSOLUTE AUTO 0.16 K/mm3 (0.00-0.23); BASOPHILS PERCENT AUTO 2 % (0-2); EOSINOPHILS ABSOLUTE AUTO 0.36 K/mm3 (0.00-0.68); EOSINOPHILS PERCENT AUTO 3 % (0-6); Hematocrit 50.1 % (37.0-53.0); Hemoglobin 16.7 g/dL (13.5-17.5); IMMATURE GRAN ABSOLUTE AUTO 0.09 K/mm3 (0.00-0.10); IMMATURE GRAN PERCENT AUTO 1 % (0-1); LYMPHOCYTES ABSOLUTE AUTO 2.20 K/mm3 (0.84-5.20); LYMPHOCYTES PERCENT AUTO 21 % (21-46); MONOCYTES ABSOLUTE AUTO 0.64 K/mm3 (0.16-1.47); MONOCYTES PERCENT AUTO 6 % (4-13); Mean Corpuscular HGB Conc 33.3 g/dL (31.5-36.5); Mean Corpuscular Volume 87 fL (80-100); NEUTROPHILS ABSOLUTE AUTO 7.26 K/mm3 (1.96-9.15); NEUTROPHILS PERCENT AUTO 68 % (41-73); NRBC ABSOLUTE 0.00 K/mm3 (0.00-0.02); NRBC Auto 0.0 /100 WBC (0.0-0.2); Platelet Count 211 K/mm3 (150-400); RDW Coefficient Variation 14.9 % (11.7-14.2); RDW Standard Deviation 47.4 fL (35.1-46.3)
[2025-09-10 18:29] LABS: Alanine Aminotransfer (ALT/SGP 31.0 U/L (12-78); Albumin, Blood 3.9 g/dL (3.4-5.0); Albumin/Globulin Ratio 1.0 (0.8-1.8); Anion Gap 10.0 mmol/L (3-11); Aspartate Aminotrans (AST/SGOT 21.0 U/L (12-37); Bilirubin, Total 0.4 mg/dL (0.1-1.0); Blood Urea Nitrogen 15.0 mg/dL (8-24); CO2, Blood 22.0 mmol/L (21-32); Calcium, Blood 9.0 mg/dL (8.5-10.1); Chloride, Blood 102.0 mmol/L (98-108); Creatinine, Blood 0.68 mg/dL (0.60-1.20); Globulin, Blood 3.9 g/dL (2.2-4.0); Glucose, Blood 162.0 mg/dL (70-99); Potassium, Blood 4.2 mmol/L (3.5-5.5); Sodium, Blood 130.0 mmol/L (136-145); Total Protein, Blood 7.8 g/dL (6.4-8.2)
[2025-09-10] MEDS ORDERED: Piperacillin/Tazobactam Sod 3.375 GM in NS 100 ML IV ONE (19:55)
[2025-09-10] MEDS ORDERED: Vancomycin (Pharmacy Consult) IV PRN (19:55)
[2025-09-10] MEDS ORDERED: Ondansetron HCl 2 MG / ML 2ML Vial IV PRN (20:35)
[2025-09-10] MEDS ORDERED: FLU VACC TS2025-26(6MOS UP)/PF 45 MCG/0.5 ML SYRINGE IM SCH (20:35)
[2025-09-10] MEDS ORDERED: NS 1,000 ML IV SCH (20:35)
[2025-09-10] MEDS ORDERED: Vancomycin (Pharmacy Consult) IV SCH (20:35)
[2025-09-10] MEDS ORDERED: FentaNYL Citrate 50 MCG/ML 2 ML Injection IV PRN (20:55)
[2025-09-10] MEDS ORDERED: TRAZ100 PO (20:58)
[2025-09-10] MEDS ORDERED: Crestor40 MG PO (20:58)
[2025-09-10] MEDS ORDERED: Aspir 8181 MG PO (20:59)
[2025-09-10] MEDS ORDERED: AMIT25 PO (21:00)
[2025-09-10] MEDS ORDERED: JARDIANCE10 MG PO (21:03)
[2025-09-10 21:42] VITALS: BP 167/81
[2025-09-11] MEDS ORDERED: Piperacillin/Tazobactam Sod 4.5 GM in NS 100 ML IV SCH
[2025-09-11 00:10] VITALS: BP 149/75
[2025-09-11] MEDS ORDERED: Albuterol 2.5 MG/3 ML VIAL INH PRN (00:20)
--- NOTE | 2025-09-11 03:11 | NUR ---
SHIFT SUMMARY: PT IS AOX4. PT ADMITTED TO THE FLOOR THIS SHIFT. REDNESS AND SWELLING NOTED TO RLE. PT HAS BEEN COMPLAINING OF RLE PAIN AND HAS BEEN MEDICATED PER eMAR. PT IS CURRENTLY NPO. CALLED THE ANSWERING SERVICE FOR THE PODIATRY CONSULT. CALL LIGHT IS WITHIN REACH. BED IS LOW AND LOCKED.
[2025-09-11 04:30] VITALS: BP 160/74
[2025-09-11 05:12] LABS: BASOPHILS ABSOLUTE AUTO 0.15 K/mm3 (0.00-0.23); BASOPHILS PERCENT AUTO 2 % (0-2); EOSINOPHILS ABSOLUTE AUTO 0.28 K/mm3 (0.00-0.68); EOSINOPHILS PERCENT AUTO 3 % (0-6); Hematocrit 48.0 % (37.0-53.0); Hemoglobin 15.9 g/dL (13.5-17.5); IMMATURE GRAN ABSOLUTE AUTO 0.08 K/mm3 (0.00-0.10); IMMATURE GRAN PERCENT AUTO 1 % (0-1); LYMPHOCYTES ABSOLUTE AUTO 2.03 K/mm3 (0.84-5.20); LYMPHOCYTES PERCENT AUTO 21 % (21-46); MONOCYTES ABSOLUTE AUTO 0.78 K/mm3 (0.16-1.47); MONOCYTES PERCENT AUTO 8 % (4-13); Mean Corpuscular HGB Conc 33.1 g/dL (31.5-36.5); Mean Corpuscular Volume 87 fL (80-100); NEUTROPHILS ABSOLUTE AUTO 6.60 K/mm3 (1.96-9.15); NEUTROPHILS PERCENT AUTO 67 % (41-73); NRBC ABSOLUTE 0.00 K/mm3 (0.00-0.02); NRBC Auto 0.0 /100 WBC (0.0-0.2); Platelet Count 184 K/mm3 (150-400); RDW Coefficient Variation 14.8 % (11.7-14.2); RDW Standard Deviation 47.2 fL (35.1-46.3)
[2025-09-11 05:54] LABS: Alanine Aminotransfer (ALT/SGP 30.0 U/L (12-78); Albumin, Blood 3.5 g/dL (3.4-5.0); Albumin/Globulin Ratio 1.1 (0.8-1.8); Anion Gap 12.0 mmol/L (3-11); Aspartate Aminotrans (AST/SGOT 19.0 U/L (12-37); Bilirubin, Total 0.3 mg/dL (0.1-1.0); Blood Urea Nitrogen 16.0 mg/dL (8-24); CO2, Blood 23.0 mmol/L (21-32); Calcium, Blood 8.8 mg/dL (8.5-10.1); Chloride, Blood 104.0 mmol/L (98-108); Creatinine, Blood 0.64 mg/dL (0.60-1.20); Globulin, Blood 3.3 g/dL (2.2-4.0); Glucose, Blood 131.0 mg/dL (70-99); Potassium, Blood 3.6 mmol/L (3.5-5.5); Sodium, Blood 135.0 mmol/L (136-145); Total Protein, Blood 6.8 g/dL (6.4-8.2)
--- NOTE | 2025-09-11 05:58 | NUR ---
PT REFUSED 0600 BLOOD SUGAR CHECK. GLUCOSE FROM LAB 131.
[2025-09-11 07:25] VITALS: BP 158/86
[2025-09-11] MEDS ORDERED: Insulin Human Lispro 100 Units/ML 3ML Syringe SC SCH (07:30)
[2025-09-11] MEDS ORDERED: DULoxetine HCL 30 MG Cap DR PO SCH (09:00)
--- NOTE | 2025-09-11 10:13 | NUR ---
0900 DR AVALOS HERE TO DISCUSS PLAN OF TREATMENT WITH PATIENT. PT IN AGREEMENT WITH PLAN OF CARE TO RECEIVE MRI AND IV ANTIBIOTICS. DR AVALOS LEAVING ROOM HE TOLD PT "BE NICE TO YOUR NURSES THEY ARE THE ONES PROVIDING YOUR CARE SO YOU CAN GET OUT OF HOSPITAL"PT RAISED VOICE TO ME AND STATED "WHO IS SAYING I AM BEING DIFFICULT AND WHY ARE YOU TALKING BEHIND MY BACK, IF SOMETHING NEEDS TO BE SAID SAY IT DIRECTLY TO MY FAC, I HAVE WALKED OUT OF HERE TWICE BECAUSE YOU GUYS ALL JAMES TO HAVE SOME SORT OF A BEEF WITH ME" DISCUSSED WITH PATIENT THAT I WAS AWARE HE WAS NOT ALLOWING BLOOD SUGARS TO BE CHECKED AND STAFF WANTED TO MONITOR BLOOD SUGAR CLOSELY BECAUSE RUNNING TO HIGH CAN LESSON HEALING. PT AGAIN WITH RAISED VOICE STATES TWICE MORE "WHY ARE YOU LYING TO ME INSTEAD OF BEING STRAIGHT UP" B[place]RON DISCUSSED WITH PATIENT THAT WE WOULD LIKE TO PROVIDE HIM WITH EXCELLENT CARE AND AGAIN DISCUSSED PLAN OF TREATMENT WITH PATIENT PT STATES "I HAVE WALKED OUT OF HERE TWICE BEFORE AND IM LEAVING TODAY" ASKED PATIENT IF HE HAD QUESTIOS I COULD ANSWER FOR HIM OR ANYTHING I COULD DO FOR HIM. "PT STATES I WANT MY MRI AND MEDICATIONS AND I NEED ARIDE HOME WITHIN THE NEXT HOUR. DISCUSSED WITH ÁNGEL THAT IT IS UNLIKELY MRI COULD BE COMPLETED WITHIN HIS TIME FRAME AND THAT I WOULD SPEAK WITH HIS HOSPITALIST REGARDING DISCHARGE MEDICATIONS. PT STATES "THEN IM LEAVING, READ AMA FORM TO ÁNGEL, PT RAISED VOICE AND STATED "WHY DID YOU PUT ON THAT FORM (UNDER RISKS OF LEAVING ON AMA FORM) HAVE YOU GUYS NOT DONE YOUR JOB AND YOU THINK I WILL " DISCUSSED WITH ÁNGEL THAT COULB BE THE OUTCOME IF HIS INFECTION IS LEFT UNTREATED. DISCUSSED WITH PATIENT THAT HE SHOULD SEEK FOLLOW UP CARE SOON POSSIBLE AND THAT HE SHOULD RETURN TO THE ER IF HE BEGINS HAVING INCREASED PAIN, DRAINAGE, REDNESS, FOUL SMELL. THIS RN UPDATED PRIMARY CARE NURSE JIGNA CHRISTIE OF PATIENTS PLAN FOR AMA DISCHARGE
--- NOTE | 2025-09-11 10:31 | NUR ---
THE RN WENT ON 15 MINUTES BREAK AT APPROX 0900, UPON RETURNING TO ASSIGNMENT, WOOD CREW SUPERVISOR INFORMED THIS RN THAT PT WOULD BE LEAVING AMA. BREAK RN AND FOREST MANAGEMENT TEACHER EDUCATED PT ON IMPORTANCE OF MEDICAL TREATMENT. AMA PAPER SIGNED BY BREAK RN AND PT. WHEN THIS RN ATTEMPT TO TALK TO PT, PT WAS VERY SHORT WITH RESPONSES AND WITHDRAWN, TRANSPORT SCHEDULED FOR 1130.
--- NOTE | 2025-09-11 11:29 | NUR ---
DC AMA 1000 PT AOX4, SEMI COOPERATIVE, REFUSING SOME ASPECTS OF CARE, ABLE TO MAKE NEEDS KNOWN. PT WAS IND IN ROOM USING PERSONAL WC. THIS RN DID TALK WITH MD OVER PHONE ABOUT ANY HARD SCRIPTS, MD REPLIED "I WILL TALK TO HIM". THIS RN INFORMED PT THAT "DOCTOR WANTS TO TALK TO YOU BEFORE YOU LEAVE." DID INFORMED MD THAT TRANSPORT SET UP FOR 1130. 1130 TRANSPORT ARRIVED. UPON EXITING ROOM, PT INQUIRED ABOUT HARD PRESCIPTIONS FOR MEDICATION. THIS RN REPLIED "THE DOCTOR WANTED TO TALK TO YOU BEFORE YOU LEAVE, I DONT HAVE ANY SCIPTS FOR YOU RIGHT NOW". PT WAS SHORT WITH THIS RN AND REPLIED "AIGHT" AND TRANSPORT WENT ON THEIR WAY. ROOM STRIPPED AND ALL PERSONAL BELONGINGS LEFT WITH PT.
== END 2025-09-11 11:24 | disposition left against medical advice (07) | DRG 872 ==
LOC: ER 16:37 → SURS 20:24 → MEDS 20:24
PROVIDERS: Physician Assistant; ADMIT Internal Medicine
DX: A41.9 Sepsis, unspecified organism (principal); M86.8X7 Other osteomyelitis, ankle and foot; E11.69 Type 2 diabetes mellitus with other specified complication; E11.40 Type 2 diabetes mellitus with diabetic neuropathy, unspecified; I11.0 Hypertensive heart disease with heart failure; I50.9 Heart failure, unspecified; I25.10 Atherosclerotic heart disease of native coronary artery without angina pectoris; M54.9 Dorsalgia, unspecified; G89.29 Other chronic pain; F32.A Depression, unspecified; E11.51 Type 2 diabetes mellitus with diabetic peripheral angiopathy without gangrene; F17.210 Nicotine dependence, cigarettes, uncomplicated; E11.65 Type 2 diabetes mellitus with hyperglycemia; F12.10 Cannabis abuse, uncomplicated; F41.9 Anxiety disorder, unspecified; Z23 Encounter for immunization; Z89.612 Acquired absence of left leg above knee; Z79.891 Long term (current) use of opiate analgesic; Z86.711 Personal history of pulmonary embolism; Z79.899 Other long term (current) drug therapy; Z79.2 Long term (current) use of antibiotics; Z79.51 Long term (current) use of inhaled steroids; Z79.85 Long-term (current) use of injectable non-insulin antidiabetic drugs; Z79.4 Long term (current) use of insulin; Z79.84 Long term (current) use of oral hypoglycemic drugs; Z88.8 Allergy status to other drugs, medicaments and biological substances; Z86.73 Personal history of transient ischemic attack (TIA), and cerebral infarction without residual deficits; Z87.19 Personal history of other diseases of the digestive system
CPT/HCPCS: 36415; 73552; 73630; 80053; 83605; 83880; 85025; 85651; 86140; 93005; 93010; 96365; 99285-25; A9270; J2543; J3010; J3373; J7030; J7040